=== PATIENT | male | born 1980 | race Caucasian/White ===

== ENCOUNTER → 2019-08-15 08:52 | Outpatient (BNVA) | payer OTHER, SELFPAY | PROVIDERS: Family Provider Family Medicine; Visit Provider Nurse Practitioner Psychiatric/Mental Health | DX: F43.12 Post-traumatic stress disorder, chronic (principal); F33.1 Major depressive disorder, recurrent, moderate; F41.1 Generalized anxiety disorder; Z87.820 Personal history of traumatic brain injury; G31.84 Mild cognitive impairment of uncertain or unknown etiology | CPT/HCPCS: 99214 ==

== ENCOUNTER → 2019-09-23 07:42 | Outpatient (BNVA) | payer OTHER, SELFPAY | PROVIDERS: Family Provider Family Medicine; Visit Provider Nurse Practitioner Psychiatric/Mental Health | DX: F43.12 Post-traumatic stress disorder, chronic (principal); F33.1 Major depressive disorder, recurrent, moderate; F41.1 Generalized anxiety disorder; Z87.820 Personal history of traumatic brain injury; G31.84 Mild cognitive impairment of uncertain or unknown etiology | CPT/HCPCS: 99214 ==

== ENCOUNTER → 2020-02-29 09:56 | Outpatient (BNVA) | payer OTHER, SELFPAY | PROVIDERS: Family Provider Family Medicine; PCP Urology; Visit Provider Nurse Practitioner Family | DX: Z20.828 Contact with and (suspected) exposure to other viral communicable diseases (principal) | CPT/HCPCS: 87635 ==

== ENCOUNTER → 2020-03-08 15:38 | Outpatient (BNVA) | payer OTHER, SELFPAY | PROVIDERS: Family Provider Family Medicine; PCP Family Medicine; Visit Provider Urology | DX: E29.1 Testicular hypofunction (principal) | CPT/HCPCS: 81001 ==

== ENCOUNTER 2020-04-07 14:12 | Emergency (ER) | payer OTHER, SELFPAY ==
--- NOTE | 2020-04-07 14:12 | XRR_ITS ---
PROCEDURE INFORMATION: Exam: XR Right Knee Exam date and time: 04/07/2020 2:13 PM Age: 40 years old Clinical indication: Pain; Knee; Right; Patient HX: Pivot/twist injury TECHNIQUE: Imaging protocol: XR Right knee. Views: 3 views. COMPARISON: No relevant prior studies available. FINDINGS: Bones/joints: No fracture evident. No significant joint space narrowing. Soft tissues: Normal. XR/XR knee RT 3V* [id number] IMPRESSION: No acute findings.
[2020-04-07 14:16] VITALS: BP 122/78; PULSE 100; RESP 18; TEMP 36.4; O2SAT 93; BMI 33.7
--- NOTE | 2020-04-07 14:27 | W.ED.EXTPRO ---
HPI - Extremity Problem General: Chief complaint: Extremity Injury, Lower Stated complaint: R KNEE PAIN Time Seen by Provider: 04/07/20 14:23 Source: patient Mode of arrival: ambulatory Limitations: no limitations History of Present Illness: HPI Narrative: 40-year-old male states he was wrapping a maximal game as he turned around he felt a pop in his right knee and started having right knee pain. He states that over the medial portion of his knee at the distal quadricep. Patient states that he now is unable to bear weight due to the pain. States pain is 7 out of 10. He does have swelling. Denies any other injuries. MD Complaint: extremity pain Associated symptoms: Deny chest pain, fever(s) or rash Review of Systems Const: Denies: fever(s), chills, body aches or change in appetite Eyes: Denies: blurry vision or eye discomfort ENMT: Denies: throat pain or dental pain Card: Denies: chest pain Resp: Denies: dyspnea GI: Denies: abdominal pain, nausea, vomiting or diarrhea : Denies: dysuria Musc: Reports: extremity pain Skin/Breast: Denies: rash Neuro: Denies: headache(s) Psych: Denies: depression Zeke/Lymph: Denies: easy bruising All/Imm: Denies: urticaria PFSH ED PFSH: Medical History Chronic post-traumatic stress disorder Diabetes mellitus Generalized anxiety disorder Hiatal hernia HTN (hypertension) Hypogonadism in male Major depressive disorder, recurrent, moderate Mild cognitive impairment, so stated Obstructive sleep apnea Personal history of traumatic brain injury Surgical History H/O arthroscopic knee surgery H/O esophagogastroduodenoscopy History of radiofrequency ablation (RFA) procedure for cardiac arrhythmia Hx of vasectomy Status post colonoscopy Family History Other CAD (coronary artery disease) Cancer Diabetes Stroke Denies family history of Anesthesia complication Bleeding disorder Social History Smoking and tobacco status: never smoked Alcohol intake: current Alcohol intake frequency: holidays/special occasions only History of recent travel: No Physical Exam Const: COMMON NORMALS: no acute distress, patient oriented x3 and healthy appearing HENMT: COMMON NORMALS: normocephalic and atraumatic HEAD & SCALP: normocephalic and atraumatic Eye: COMMON NORMALS: Equal, round and reactive pupils present and EOMs intact bilaterally PUPIL: Yes Equal, round and reactive pupils present Neck/C-Spine: COMMON NORMALS: full ROM and supple Chest: COMMONS NORMALS: normal inspection of the chest and normal palpation of entire chest wall Resp: COMMON NORMALS: normal respiratory effort, No retractions, No use of accessory muscles and clear to auscultation bilaterally AUSCULTATION: clear to auscultation bilaterally Cardio: COMMON NORMALS: regular rate, regular rhythm and No murmurs present (Cardio) RATE: regular rate RHYTHM: regular rhythm GI: COMMON NORMALS: Normal to inspection, nondistended, normoactive bowel sounds present, Soft to palpation, non-tender and no masses PALPATION: Yes Soft to palpation Extremity: NARRATIVE EXTREMITY EXAM: Tenderness over right knee mainly over the medial portion. Slight swelling. He does have range of motion. Neuro: COMMON NORMALS: patient oriented x3, moves all extremities and no focal motor deficits Psych: COMMON NORMALS: mental status grossly normal, Normal thought process present and cooperative THOUGHT PROCESS: Normal thought process present Skin: COMMON NORMALS: no rashes or lesions noted and no wounds GENERAL SKIN EXAM: no rashes or lesions noted Course Vital Signs: Vital signs: Vital Signs Temperature 97.6 F 04/07/20 14:16 Pulse Rate 100 04/07/20 14:16 Respiratory Rate 18 04/07/20 14:16 Blood Pressure 122/78 04/07/20 14:16 Pulse Oximetry 93 04/07/20 14:16 MDM - Extremity (Nontraumatic) MDM Narrative: Medical decision making narrative: Patient presents with a knee sprain. X-ray showed no acute fractures. Patient placed in a knee immobilizer and given crutches and is to follow-up with orthopedics and be nonweightbearing. Imaging Data^: X-ray right knee: Attestation: I personally reviewed and interpreted this imaging study as follows: My impression: No acute abnormality Discharge Plan Discharge Patient Disposition: Home Clinical Impression: Right knee sprain Qualifiers: Encounter type: initial encounter Involved ligament of knee: unspecified ligament Qualified Code(s): S83.91XA - Sprain of unspecified site of right knee, initial encounter Condition: Stable Prescriptions: New Naprosyn 500 mg tablet 500 mg PO BID PRN (Reason: pain) Qty: 20 RF: 0 No Action aspirin 325 mg tablet 325 mg PO DAILY RF: 0 lisinopril 40 mg tablet 40 mg PO DAILY RF: 0 metoprolol tartrate 100 mg tablet 100 mg PO BID RF: 0 multivitamin Tablet 1 tab PO DAILY RF: 0 metformin 500 mg tablet 1,000 mg PO BID RF: 0 atorvastatin 10 mg tablet 10 mg PO DAILY RF: 0 testosterone cypionate [Depo-Testosterone] 200 mg/mL oil 200 mg IM .Every other week Qty: 10 RF: 5 Discharge Orders: Discharge Order (Routine); Ordered 04/07/20 Ordered By: Caryn Thomason Referrals: Loco Diaz DO [Primary Care Provider] - Chetan De Dios MD [Physician] - 1-3 days Discharge Diet: Advance as tolerated Discharge Activity: Resume usual activity Patient Instructions: Knee Sprain (ED), Knee Immobilizer (ED) Coding Level of Care Code ED Linux 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
[2020-04-07] MEDS: HYDROcodone-acetaminophen 5-325 mg Tablet 1 TAB PO (14:34)
[2020-04-07 15:03] VITALS: BP 121/79; PULSE 91; RESP 20; O2SAT 95
--- NOTE | 2020-04-09 11:00 | DCPLANNER ---
fire safety manager had message to schedule a follow up appointment for patient with ortho. Truong solares called the ortho clinic, spoke with Meme, gave clinic patients information. fire safety manager was told that patients information would be printed and reviewed. Clinic will call patient with appointment information.
--- NOTE | 2020-04-10 08:16 | DCPLANNER ---
Patient has a follow up appointment scheduled for Thursday, April 16, 2020 at 9:[address] De Dios. Clinic will call patient with appointment information.
--- NOTE | 2020-04-25 12:04 | DCPLANNER ---
Patient had a follow up appointment scheduled for 04.16.20 with ortho - patient did not attend appointment.
== END 2020-04-07 16:03 | disposition home or self-care (01) ==
LOC: ER 14:42
PROVIDERS: Emergency Provider Emergency Medicine; PCP Family Medicine
DX: S83.91XA Sprain of unspecified site of right knee, initial encounter (principal); Z79.82 Long term (current) use of aspirin; X50.1XXA Overexertion from prolonged static or awkward postures, initial encounter; E11.9 Type 2 diabetes mellitus without complications; I10 Essential (primary) hypertension
CPT/HCPCS: 12345; 29530; 73562; 99281; 99283; E0114; L1830

== ENCOUNTER → 2020-06-12 15:47 | Outpatient (BNVA) | payer OTHER, SELFPAY | PROVIDERS: PCP Family Medicine; Visit Provider Nurse Practitioner Family | DX: Z20.828 Contact with and (suspected) exposure to other viral communicable diseases (principal) | CPT/HCPCS: 87635 ==

== ENCOUNTER → 2020-07-20 10:09 | Outpatient (BNVA) | payer OTHER, SELFPAY | PROVIDERS: PCP Family Medicine; Visit Provider Urology | DX: R79.89 Other specified abnormal findings of blood chemistry (principal); E29.1 Testicular hypofunction | CPT/HCPCS: 81003; 84403 ==

== ENCOUNTER 2020-08-23 09:07 | Inpatient (IN) | payer OTHER, SELFPAY ==
[2020-08-23] VITALS (42 sets, daily range): BP systolic 94–142; BP diastolic 52–78; PULSE 68–152; RESP 9–27; TEMP 36.5–36.9; O2SAT 18–98; BMI 32.5
--- NOTE | 2020-08-23 09:16 | ECG_ITS ---
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 Measurements Intervals [place] Rate: 152 P: AL: QRS: 61 QRSD: 100 T: 58 QT: 278 QTc: 442 Interpretive Statements ATRIAL FIBRILLATION WITH RAPID VENTRICULAR RESPONSE CRITICAL TEST RESULT Compared to ECG 04/24/2018 01:09:53 Sinus rhythm no longer present Intraventricular conduction delay no longer present T-wave abnormality no longer present Electronically Signed On 08-23-2020 17:26:41 CDT by Sita Isaac M.D. [email or web address]/store/NU/[id number] f
--- NOTE | 2020-08-23 09:16 | XR_ITS ---
WS: [id number] Portable AP upright chest, 08/23/2020 Clinical Data: chest pain/dyspnea Comparison: Portable chest, 04/23/2018. Findings: No nodules, masses or effusions are seen. The heart is normal. The pulmonary vascularity is not increased. No pneumonia or pneumothorax is seen. XR/XR chest 1V portable [id number] Impression: Negative chest.
[2020-08-23 09:24] LABS: Glucose Point of Care 503 mg/dL (70-110)
[2020-08-23 09:34] LABS: Basophils # 0.1 10^3/uL (0.0-0.1); Basophils % 0.8 %; Eosinophils # 0.2 10^3/uL (0.0-0.8); Eosinophils % 2.8 %; Hematocrit 50.1 % (42.0-52.0); Hemoglobin 17.8 g/dL (11.7-16.6); Lymphocytes # 2.6 10^3/uL (0.8-4.8); Lymphocytes % 35.9 %; Mean Corpuscular HGB Conc 35.5 g/dL (30.0-36.0); Mean Corpuscular Volume 89.9 fL (80-94); Mean Platelet Volume 12.4 fL (7.4-10.4); Monocytes # 0.7 10^3/uL (0.2-0.9); Monocytes % 9.3 %; Neutrophils # 3.66 10^3/uL (1.8-7.7); Neutrophils % 50.8 %; Nucleated Red Blood Cells % 0 %; Platelet Count 160 10^3/cmm (130-400); Red Blood Count 5.57 10^6/uL (4.1-5.3); Red Cell Distribution Width 11.4 % (12.1-15.1); White Blood Count 7.2 10^3/uL (4.0-10.0)
--- NOTE | 2020-08-23 09:36 | ED_ITS ---
HPI - Arrhythmia/Palpitations General: Chief Complaint: Arrhythmia/Palpitations Stated Complaint: SOB, CP, AFIB Time Seen by Provider: 08/23/20 09:15 History of Present Illness: HPI narrative: 40-year-old male presents emergency room with complaint of rapid heart rate. He has a history of atrial fibrillation and previously had a ablation procedure done several years ago. This morning he began suddenly having chest discomfort and rapid heart rate. On arrival here he is in A. fib with RVR. He is currently taking metoprolol for for hypertension he also has a history of diabetes mellitus. He denies excessive caffeine intake or other stimulants. MD complaint: rapid heart beat, heart racing , palpitations and irregular heart beat Onset (ago): minute(s) Duration: constant Severity: moderate Context: occurred during rest Arrhythmia history: atrial fibrillation Associated symptoms: Reports anxiety and diaphoresis; Deny cough, muscle cramps, nausea, paresthesias, pre-syncope, sense of impending doom, short of breath, syncope or vomiting Review of Systems Const: Reports: diaphoresis ENMT: Denies: throat pain, ear or mastoid pain, nasal discharge or nasal congestion Card: Denies: syncope or pre-syncope Resp: Denies: dyspnea, productive cough or non-productive cough GI: Denies: nausea or vomiting : Denies: flank pain, dysuria, urinary frequency or urinary urgency Musc: Denies: muscle cramps Skin/Breast: Denies: rash or pruritus Psych: Reports: anxiety PFS ED PFSH: Medical History Chronic post-traumatic stress disorder Diabetes mellitus Generalized anxiety disorder Hiatal hernia HTN (hypertension) Hypogonadism in male Major depressive disorder, recurrent, moderate Mild cognitive impairment, so stated Obstructive sleep apnea Personal history of traumatic brain injury Surgical History H/O arthroscopic knee surgery H/O esophagogastroduodenoscopy History of radiofrequency ablation (RFA) procedure for cardiac arrhythmia Hx of vasectomy Status post colonoscopy Family History Other CAD (coronary artery disease) Cancer Diabetes Stroke Denies family history of Anesthesia complication Bleeding disorder Social History (Reviewed 04/01/21 @ 09:38 by REENA Hernandez Smoking and tobacco status: never smoked Alcohol intake: current Alcohol intake frequency: holidays/special occasions only History of recent travel: No Physical Exam Const: COMMON NORMALS: no acute distress GENERAL APPEARANCE: cooperative and comfortable ORIENTATION/CONSCIOUSNESS: Yes awake, Yes oriented to person, Yes oriented to place and Yes oriented to time HENMT: COMMON NORMALS: normocephalic, atraumatic and hearing grossly normal bilaterally HEAD & SCALP: normocephalic and atraumatic Eye: COMMON NORMALS: Equal, round and reactive pupils present, EOMs intact bilaterally, conjunctivae normal and no scleral icterus CONJUNCTIVA: Yes conjunctivae normal PUPIL: Yes Equal, round and reactive pupils present Neck/C-Spine: COMMON NORMALS: no JVD Resp: COMMON NORMALS: normal respiratory effort, No retractions, No use of accessory muscles and clear to auscultation bilaterally AUSCULTATION: clear to auscultation bilaterally Cardio: COMMON NORMALS: no JVD and No murmurs present (Cardio) RATE: tach ycardic RHYTHM: abnormal rhythm irregularly irregular GI: COMMON NORMALS: Soft to palpation and No hepatosplenomegaly present AUSCULTATION: Yes normoactive bowel sounds PALPATION: Yes Soft to palpation, No Tenderness to palpation present (GI), No Guarding due to palpation present (GI) and Yes No hepatosplenomegaly present Extremity: COMMON NORMALS: normal to inspection, capillary refill normal, no clubbing, cyanosis or edema, no calf tenderness and no pedal edema Neuro: SENSORIUM/ORIENTATION: Yes oriented to person, Yes oriented to place and Yes oriented to time Skin: COMMON NORMALS: no rashes or lesions noted GENERAL SKIN EXAM: no rashes or lesions noted Course Vital Signs: Vital signs: Vital Signs Temperature 97.7 F 08/23/20 09:17 Pulse Rate 123 H 08/23/20 12:43 Respiratory Rate 12 08/23/20 12:43 Blood Pressure 94/71 08/23/20 12:43 Pulse Oximetry 94 08/23/20 12:43 MDM - Arrhythmia/Palpitations MDM Narrative: Medical decision making narrative: A. fib with RVR. We tried supplementing his beta-bibiana with IV and p.o. but he had no improvement ultimately we started him on Cardizem. He is feeling quite a bit better since then his rate is still not fully controlled will admit for rate control and adjustment of medications. Orders are written Lab Data: Labs: Lab Results 08/23/20 08/23/20 08/23/20 Range/Units 09:21 09:25 09:25 WBC 7.2 (4.0-10.0) 10^3/ uL RBC 5.57 H (4.1-5.3) 10^6/u L Hgb 17.8 H (11.7-16.6) g/dL Hct 50.1 (42.0-52.0) % MCV 89.9 (80-94) fL MCH 32.0 (28.0-34.0) pg MCHC 35.5 (30.0-36.0) g/dL RDW 11.4 L (12.1-15.1) % Plt Count 160 (130-400) 10^3/c mm MPV 12.4 H (7.4-10.4) fL Neut % (Auto) 50.8 % Lymph % (Auto) 35.9 % [place] % (Auto) 9.3 % Eos % (Auto) 2.8 % Baso % (Auto) 0.8 % Neut # (Auto) 3.66 (1.8-7.7) 10^3/u L Lymph # (Auto) 2.6 (0.8-4.8) 10^3/u L [place] # (Auto) 0.7 (0.2-0.9) 10^3/u L Eos # (Auto) 0.2 (0.0-0.8) 10^3/u L Baso # (Auto) 0.1 (0.0-0.1) 10^3/u L Nucleated RBC % (a uto) 0 % Nucleated RBCs # 0.0 /100WBC Specimen Type Sample Site ABG pH (7.35-7.45) ABG pCO2 (35-45) mmHg ABG pO2 (80.0-100.0) mmH g ABG HCO3 (22-26) mmol/L ABG O2 Saturation ABG Base Excess (-2.0-2.0) mmol/ L Zane Test A-a O2 Gradient (5-10) mmHg Hematocrit (42-52) % Hgb O2 Saturation (95-100) % Carboxyhemoglobin (0.4-20.1) %THgb Methemoglobin (0.4-1.5) % Total Hemoglobin (14-18) g/dL Ionized Calcium (1.1-1.4) mmol/L O2 Delivery Device FiO2 % Photo Checker ID Sodium 131 L (136-145) mmol/L Potassium 3.9 (3.5-5.1) mmol/L Chloride 96 L (98-107) mmol/L Carbon Dioxide 22 (22-29) mmol/L Anion Gap 16.9 (5-19) BUN 16 (6-20) mg/dL Creatinine 0.5 L (0.7-1.2) mg/dL GFR Calculation 182.3 H (90-130) mL/min Glucose 500 H (65-115) mg/dL POC Glucose 503 H* (70-110) mg/dL Calculated Osmolal ity 295 (285-295) mOsm/k g Calcium 8.9 (8.5-10.5) mg/dL Total Bilirubin 0.6 (0.15-1.2) mg/dL AST 41 H (0-40) U/L ALT 76 H (0-41) U/L Alkaline Phosphata se 95 (40-130) IU/L Troponin T Baselin e (0-15) ng/L Troponin T 120 Min [place] (0-15) ng/L Delta Troponin T (0-10) ABS# Total Protein 7.4 (6.6-8.7) g/dL Albumin 4.1 (3.5-5.2) g/dL Globulin 3.3 (1.3-4.6) g/dL Serum Ketones (Negative) 08/23/20 08/23/20 08/23/20 Range/Units 09:25 09:25 09:48 WBC (4.0-10.0) 10^3/ uL RBC (4.1-5.3) 10^6/u L Hgb (11.7-16.6) g/dL Hct (42.0-52.0) % MCV (80-94) fL MCH (28.0-34.0) pg MCHC (30.0-36.0) g/dL RDW (12.1-15.1) % Plt Count (130-400) 10^3/c mm MPV (7.4-10.4) fL Neut % (Auto) % Lymph % (Auto) % [place] % (Auto) % Eos % (Auto) % Baso % (Auto) % Neut # (Auto) (1.8-7.7) 10^3/u L Lymph # (Auto) (0.8-4.8) 10^3/u L [place] # (Auto) (0.2-0.9) 10^3/u L Eos # (Auto) (0.0-0.8) 10^3/u L Baso # (Auto) (0.0-0.1) 10^3/u L Nucleated RBC % (a uto) % Nucleated RBCs # /100WBC Specimen Type Arterial Sample Site Radial, right ABG pH 7.40 (7.35-7.45) ABG pCO2 39.9 (35-45) mmHg ABG pO2 79.2 L (80.0-100.0) mmH g ABG HCO3 24.8 (22-26) mmol/L ABG O2 Saturation 95.0 ABG Base Excess 0.0 (-2.0-2.0) mmol/ L Zane Test Pos A-a O2 Gradient 3.1 L (5-10) mmHg Hematocrit 55.2 H (42-52) % Hgb O2 Saturation 94.2 L (95-100) % Carboxyhemoglobin 0.2 L (0.4-20.1) %THgb Methemoglobin 0.7 (0.4-1.5) % Total Hemoglobin 18.0 (14-18) g/dL Ionized Calcium 1.2 (1.1-1.4) mmol/L O2 Delivery Device Room air FiO2 21.0 % Photo Checker ID [place] Sodium 135.0 (136-145) mmol/L Potassium 3.6 (3.5-5.1) mmol/L Chloride (98-107) mmol/L Carbon Dioxide (22-29) mmol/L Anion Gap (5-19) BUN (6-20) mg/dL Creatinine (0.7-1.2) mg/dL GFR Calculation (90-130) mL/min Glucose 435.0 H (65-115) mg/dL POC Glucose (70-110) mg/dL Calculated Osmolal ity (285-295) mOsm/k g Calcium (8.5-10.5) mg/dL Total Bilirubin (0.15-1.2) mg/dL AST (0-40) U/L ALT (0-41) U/L Alkaline Phosphata se (40-130) IU/L Troponin T Baselin e 6 (0-15) ng/L Troponin T 120 Min [place] (0-15) ng/L Delta Troponin T (0-10) ABS# Total Protein (6.6-8.7) g/dL Albumin (3.5-5.2) g/dL Globulin (1.3-4.6) g/dL Serum Ketones Negative (Negative) 08/23/20 Range/Units 11:15 WBC (4.0-10.0) 10^3/ uL RBC (4.1-5.3) 10^6/u L Hgb (11.7-16.6) g/dL Hct (42.0-52.0) % MCV (80-94) fL MCH (28.0-34.0) pg MCHC (30.0-36.0) g/dL RDW (12.1-15.1) % Plt Count (130-400) 10^3/c mm MPV (7.4-10.4) fL Neut % (Auto) % Lymph % (Auto) % [place] % (Auto) % Eos % (Auto) % Baso % (Auto) % Neut # (Auto) (1.8-7.7) 10^3/u L Lymph # (Auto) (0.8-4.8) 10^3/u L [place] # (Auto) (0.2-0.9) 10^3/u L Eos # (Auto) (0.0-0.8) 10^3/u L Baso # (Auto) (0.0-0.1) 10^3/u L Nucleated RBC % (a uto) % Nucleated RBCs # /100WBC Specimen Type Sample Site ABG pH (7.35-7.45) ABG pCO2 (35-45) mmHg ABG pO2 (80.0-100.0) mmH g ABG HCO3 (22-26) mmol/L ABG O2 Saturation ABG Base Excess (-2.0-2.0) mmol/ L Zane Test A-a O2 Gradient (5-10) mmHg Hematocrit (42-52) % Hgb O2 Saturation (95-100) % Carboxyhemoglobin (0.4-20.1) %THgb Methemoglobin (0.4-1.5) % Total Hemoglobin (14-18) g/dL Ionized Calcium (1.1-1.4) mmol/L O2 Delivery Device FiO2 % Photo Checker ID Sodium (136-145) mmol/L Potassium (3.5-5.1) mmol/L Chloride (98-107) mmol/L Carbon Dioxide (22-29) mmol/L Anion Gap (5-19) BUN (6-20) mg/dL Creatinine (0.7-1.2) mg/dL GFR Calculation (90-130) mL/min Glucose (65-115) mg/dL POC Glucose (70-110) mg/dL Calculated Osmolal ity (285-295) mOsm/k g Calcium (8.5-10.5) mg/dL Total Bilirubin (0.15-1.2) mg/dL AST (0-40) U/L ALT (0-41) U/L Alkaline Phosphata se (40-130) IU/L Troponin T Baselin e (0-15) ng/L Troponin T 120 Min [place] 6.37 (0-15) ng/L Delta Troponin T 0.37 (0-10) ABS# Total Protein (6.6-8.7) g/dL Albumin (3.5-5.2) g/dL Globulin (1.3-4.6) g/dL Serum Ketones (Negative) Discharge Plan Discharge Patient Disposition: Admitted As Inpatient Admit Provider: Joaquín Schafer Clinical Impression: Atrial fibrillation with rapid ventricular response Condition: Stable Coding Level of Care Code ED Clinical Systems Analyst for Chg Fwd Exam Comprehensive
[2020-08-23] MEDS: metoprolol tartrate 50 mg Tablet PO (09:38)
[2020-08-23] MEDS: metoprolol tartrate 1 mg/1 mL SDV 5 mL 5 MG IV (09:38)
[2020-08-23] MEDS: insulin regular-human 100 units/1 mL 10 UNIT IVP (09:40)
[2020-08-23 09:51] LABS: Alanine Aminotransferase 76 U/L (0-41); Albumin Level 4.1 g/dL (3.5-5.2); Alkaline Phosphatase 95 IU/L (40-130); Anion Gap 16.9 (5-19); Aspartate Amino Transferase 41 U/L (0-40); Blood Urea Nitrogen 16 mg/dL (6-20); Calcium 8.9 mg/dL (8.5-10.5); Carbon Dioxide 22 mmol/L (22-29); Chloride 96 mmol/L (98-107); Globulin 3.3 g/dL (1.3-4.6); Glomerular Filtration Rate 182.3 mL/min (90-130); Glucose 500 mg/dL (65-115); Osmolality Calculated 295 mOsm/kg (285-295); Potassium 3.9 mmol/L (3.5-5.1); Sodium 131 mmol/L (136-145); Total Bilirubin 0.6 mg/dL (0.15-1.2); Total Protein 7.4 g/dL (6.6-8.7)
[2020-08-23 09:52] LABS: Troponin(5th) Baseline 6 ng/L (0-15)
[2020-08-23 10:01] LABS: ABG PCO2 39.9 mmHg (35-45); Alveolar-Arterial Oxygen Gradi 3.1 mmHg (5-10); Arterial Blood Gas Hematocrit 55.2 % (42-52); Blood Gas Allen Test Pos; Blood Gas Operator Identificat MONRO; Blood Gas Sample Site Radial, right; Blood Gas Sample Type Arterial; Carboxyhemoglobin 0.2 %THgb (0.4-20.1); HCO3 ABG 24.8 mmol/L (22-26); HGB O2 Sat 94.2 % (95-100); Ionized Calcium Level - ABG 1.2 mmol/L (1.1-1.4); Methemoglobin 0.7 % (0.4-1.5); Oxygen Device ROOM AIR; PO2 ABG 79.2 mmHg (80.0-100.0); Potassium Level - ABG 3.6 mmol/L (3.5-5.0)
[2020-08-23 10:26] LABS: Ketone (Acetest) Serum Negative (Negative)
--- NOTE | 2020-08-23 11:16 | ECG_ITS ---
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 Measurements Intervals [place] Rate: 109 P: [place]: QRS: 68 QRSD: 104 T: 54 QT: 337 QTc: 454 Interpretive Statements ATRIAL FIBRILLATION WITH RAPID VENTRICULAR RESPONSE ABNORMAL RHYTHM ECG Compared to ECG 08/23/2020 09:13:19 No significant changes Electronically Signed On 08-23-2020 17:25:22 CDT by Sita Isaac M.D. [id number] f
[2020-08-23 12:13] LABS: Troponin 5 2HR 6.37 ng/L (0-15); Troponin 5 2HR Delta 0.37 ABS# (0-10)
[2020-08-23] MEDS: HYDROcodone-acetaminophen 5-325 mg Tablet 1 TAB PO (13:59)
--- NOTE | 2020-08-23 14:31 | PM.HP ---
Providers/Chief Complaint Admitting Physician: Joaquín Schafer MD Primary Care Provider: Loco Diaz DO Chief Complaint: SOB, CP, AFIB History of Present Illness Michael Funk is a 40 year old male with PMH of HTN, DM, TBI,CHETNA, PTSD, MDD, a/fib s/p ablation in 2012 came in with c/o acute onset of chest pain, palpitation,dizziness, nausea, diaphoresis, started this morning while going to bank, his symptoms were same as he what he used to feel initially when he had a.fib prior to ablation. He was evaluated for the above mention complain in the ER. EKG: A fib with RVR Xray chest : No nodules, masses or effusions are seen. The heart is normal. The pulmonary vascularity is not increased. No pneumonia or pneumothorax is seen. Pertinent Labs : Troponin: T : Normal , ABG : Normal , CMP : Normal Hb: 17.8 RBS: 435, AG : 16 HCO3: 22 . ECA Medications : Cardizem 20 mg I.V * 1 Dose, Metoprolol .T : 50 MG PO Once, M.T : 5 Mg I.V * 1 Dose. Started on Cardizem Drip. Regular Insulin 10 u I.V *1 Dose Review of Systems Const: Denies: fever(s), chills, body aches or change in appetite Card: Denies: edema, swelling of feet/ankles, dyspnea on exertion, orthopnea or leg pain with exertion Resp: Denies: dyspnea, productive cough, wheezing or pain on inspiration GI: Denies: abdominal pain, diarrhea or constipation : Denies: flank pain or difficulty urinating Musc: Denies: back pain, extremity pain or extremity swelling Neuro: Denies: headache(s), difficulty walking or confusion Medications/Allergies Home Medications Medication Instructions Recorded Confirmed Last Taken Type aspirin 325 mg tablet 325 mg PO DAILY@08/15/19 08/23/20 08/23/20 History lisinopril 40 mg tablet 40 mg PO DAILY@08/15/19 08/23/20 08/23/20 History metoprolol tartrate 100 mg tablet 100 mg PO BID@08/15/19 08/23/20 08/23/20 History multivitamin 1 tab PO DAILY@08/15/19 08/23/20 08/23/20 History testosterone cypionate 200 mg/mL 200 mg IM .Every other week #10 ml 07/20/20 08/23/20 Unknown Rx intramuscular oil metformin 500 mg PO BID@09,17 08/23/20 08/23/20 08/23/20 History Allergies Allergy/AdvReac Type Severity Reaction Status Date / Time No Known Allergies Allergy Verified 07/20/20 10:05 PFSH Acute PFSH: Medical History Chronic post-traumatic stress disorder Diabetes mellitus Generalized anxiety disorder Hiatal hernia HTN (hypertension) Hypogonadism in male Major depressive disorder, recurrent, moderate Mild cognitive impairment, so stated Obstructive sleep apnea Personal history of traumatic brain injury Surgical History H/O arthroscopic knee surgery H/O esophagogastroduodenoscopy History of radiofrequency ablation (RFA) procedure for cardiac arrhythmia Hx of vasectomy Status post colonoscopy Family History Other CAD (coronary artery disease) Cancer Diabetes Stroke Denies family history of Anesthesia complication Bleeding disorder Social History Smoking and tobacco status: never smoked Alcohol intake: current Alcohol intake frequency: holidays/special occasions only History of recent travel: No Vitals/I&O/Wt Last Vital Signs Temp 97.7 F 08/23/20 09:17 Pulse 116 H 08/23/20 13:59 Resp 13 08/23/20 13:59 BP 105/78 08/23/20 13:59 Pulse Ox 95 08/23/20 13:59 08/22/20 08/23/20 08/23/20 22:59 06:59 14:59 Intake Total 13.292 / 13.292 Balance 13.292 / 13.292 Weight last 48 hrs Weight 117.934 kg Physical Exam Const: COMMON NORMALS: patient oriented x3 HENMT: COMMON NORMALS: normocephalic and atraumatic HEAD & SCALP: normocephalic and atraumatic Chest: COMMONS NORMALS: normal inspection of the chest and normal palpation of entire chest wall CHEST: Yes Symmetrical chest wall rise Resp: COMMON NORMALS: normal respiratory effort, No retractions, No use of accessory muscles and clear to auscultation bilaterally EFFORT & INSPECTION: Yes symmetric chest movement AUSCULTATION: clear to auscultation bilaterally Cardio: PERIPHERAL PULSES: Peripheral pulses 2+ throughout OTHER: S1S2 of Variable Intensity,Irregularly Irregular Rhythm GI: COMMON NORMALS: Normal to inspection, nondistended, normoactive bowel sounds present, Soft to palpation, non-tender, No hepatosplenomegaly present and no masses AUSCULTATION: Yes normoactive bowel sounds PALPATION: Yes Soft to palpation and Yes No hepatosplenomegaly present RECTAL EXAM: Yes deferred Extremity: COMMON NORMALS: no clubbing, cyanosis or edema and no pedal edema Neuro: COMMON NORMALS: patient oriented x3 Data : 08/23/20 09:25 08/23/20 09:25 A&P Assessment and plan (1) Atrial fibrillation with rapid ventricular response: 2D Echo TSH Tele On Cardizem Drip Metoprolol .T 100 MG Q12 H Daily Lovenox 120 mg sc q12 h daily Status: Acute (2) HTN (hypertension): Lisinopril 40 mg PO Daily Status: Acute (3) Diabetes mellitus: LDSSI FSG HbA1C Status: Acute (4) Obstructive sleep apnea: Status: Acute Additional A&P Information Code Status : Full code DVT PPX: On Eliquis Disposition :Home Attestations Medical Necessity Statement*: Patient needs to be in hospital for the management of A.fib with RVR. Anticipated LOS Greater then 2 midnights. Coding Level of Care Code Acute Fire Tower Keeper for Chg Fwd Diagnoses Atrial fibrillation with rapid ventricular response I48.91 HTN (hypertension) I10 Diabetes mellitus E11.9 Obstructive sleep apnea G47.33
--- NOTE | 2020-08-23 15:16 | ECG_ITS ---
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 Measurements Intervals [place] Rate: 97 P: MS: QRS: 58 QRSD: 104 T: 41 QT: 339 QTc: 432 Interpretive Statements ATRIAL FIBRILLATION ABNORMAL RHYTHM ECG Compared to ECG 08/23/2020 11:42:16 No significant changes Electronically Signed On 08-23-2020 17:24:40 CDT by Sita Isaac M.D. [email or web address]
--- NOTE | 2020-08-23 16:00 | PC.NURSE ---
Pt arrived to room 103 from ED. Pt A&O x4. Resp even and non-labored no distress noted. Pt had no c/o pain or discomfort at the present time. Pt on a Cardizem drip at 15mg/hr. Pt sitting up in bed talking to and staff. Call light in reach. Will continue to monitor.
[2020-08-23] MEDS: enoxaparin 100 mg/mL Syringe 120 MG SUBCUT (16:09)
[2020-08-23] MEDS: metoprolol tartrate 50 mg Tablet 100 MG PO (16:09)
[2020-08-23 16:12] LABS: Glucose Point of Care 340 mg/dL (70-110)
[2020-08-23 17:48] LABS: Troponin 5 6HR Delta 0 ng/L (0-12)
--- NOTE | 2020-08-23 19:52 | PC.NURSE ---
Bedside report received from Roz Mcfadden RN. Patient is sitting in bed using is Ipad, A & O x4, denies pain or any needs at this time.
[2020-08-23 20:37] LABS: Glucose Point of Care 317 mg/dL (70-110)
[2020-08-24] VITALS (38 sets, daily range): BP systolic 105–120; BP diastolic 62–74; PULSE 67–116; RESP 0–23; TEMP 36.6–36.8; O2SAT 94–96
--- NOTE | 2020-08-24 00:09 | PC.NURSE ---
Patient up using the restroom. Denies pain or any needs at this time.
[2020-08-24] MEDS: enoxaparin 100 mg/mL Syringe 120 MG SUBCUT (01:46)
--- NOTE | 2020-08-24 05:00 | USCV_ITS ---
Michael Funk Age: 40 Gender: M : 1980 Exam Date: 08/24/2020 16:25 Ordering Phys: Joaquín Schafer MD Technologist: Julita Blount [place] [facility] [place]: CHEST PAIN BP: 100 / 55 HR: 76 Rhythm: Sinus Technical Quality: Adequate MEASUREMENTS (Male / Female) Normal Values 2D ECHO LV Diastolic Diameter PLAX 4.4 cm 4.2 - 5.9 / 3.9 - 5.3 cm LV Systolic Diameter PLAX 3.5 cm LV Chamber Size 4.3 cm IVS Diastolic Thickness 1.1 cm 0.6 - 1.0 / 0.6 - 0.9 cm IVS Systolic Thickness 1.6 cm LVPW Diastolic Thickness 1.5 cm 0.6 - 1.0 / 0.6 - 0.9 cm LVPW Systolic Thickness 1.5 cm RV Chamber Size 3.6 cm LVOT Diameter 2.4 cm LV Ejection Fraction 2D Teich 41.0 % LV Ejection Fraction MOD 2C 27.9 % LV Ejection Fraction 2C AL 28.5 % LA Diameter 3.3 cm LA Width 3.0 cm LA Height 5.3 cm RA Width 3.4 cm RA Height 4.8 cm Aorta at Sinotubular Diameter 3.3 cm M-MODE LV Diastolic Diameter MM 4.3 cm 4.2 - 5.9 / 3.9 - 5.3 cm LV Systolic Diameter MM 3.2 cm LV Ejection Fraction MM Teich 50.8 % IVS Diastolic Thickness MM 1.3 cm 0.6 - 1.0 / 0.6 - 0.9 cm IVS Systolic Thickness MM 1.6 cm LVPW Diastolic Thickness MM 1.2 cm 0.6 - 1.0 / 0.6 - 0.9 cm LVPW Systolic Thickness MM 1.5 cm RV Diastolic Diameter MM 1.1 cm Aortic Annulus Diameter 3.7 cm LA Ao Ratio MM 1.0 MV E Point Septal Separation 0.4 cm DOPPLER AV Peak Velocity 88.0 cm/s LVOT Peak Velocity 62.0 cm/s AV Area Cont Eq vti 3.1 cm squared AV Area Cont Eq pk 3.1 cm squared MV Area PHT 4.8 cm squared Mitral E to A Ratio 1.3 MV E' Velocity 33.0 cm/s Mitral E to MV E' Ratio 6.6 Mitral E to LV E' Lateral Ratio 5.9 Mitral E to LV E' Septal Ratio 7.6 TR Peak Velocity 218.9 cm/s TR Peak Gradient 19.2 mmHg TR Mean Velocity 170.4 cm/s TR Mean Gradient 12.5 mmHg TR Velocity Time Integral 50.4 cm TV Peak E Velocity 53.0 cm/s Right Atrial Pressure 3.0 mmHg Pulmonary Artery Systolic Pressu 22.2 mmHg PV Peak Velocity 57.0 cm/s RV Acceleration Time 0.1 s RV Ejection Time 0.3 s RV AcT/ET 0.4 FINDINGS Left Ventricle Mild diffuse hypokinesia of the left ventricle with ejection fraction of 45 to 50% Right Ventricle The right ventricle is normal in size and function. Right Atrium The right atrium is normal in size. Left Atrium The left atrium is normal in size. Mitral Valve No gross abnormalities noted Aortic Valve No gross abnormalities noted Tricuspid Valve Trace tricuspid valve regurgitation Pulmonic Valve No significant stenosis or regurgitation Pericardium Normal pericardium without effusion. Aorta Normal ascending aorta dimension. CONCLUSIONS Mild diffuse hypokinesia of the left ventricle with ejection fraction of 45 to 50%. Trace tricuspid valve regurgitation . Normal cardiac chamber sizes There are no intracardiac masses. Compared to the study from 07/06/2018, the drop in the LV ejection fraction appears to be new. Discussed with Dr. Schafer about this finding Dr Willie Harrison MD [facility] (Electronically Signed) Final Date: 25 August 2020 09:23 S
[2020-08-24 05:01] LABS: Basophils # 0.1 10^3/uL (0.0-0.1); Basophils % 0.8 %; Eosinophils # 0.3 10^3/uL (0.0-0.8); Eosinophils % 3.6 %; Hematocrit 50.4 % (42.0-52.0); Hemoglobin 17.8 g/dL (11.7-16.6); Lymphocytes # 3.5 10^3/uL (0.8-4.8); Lymphocytes % 46.8 %; Mean Corpuscular HGB Conc 35.3 g/dL (30.0-36.0); Mean Corpuscular Volume 90.6 fL (80-94); Mean Platelet Volume 12.2 fL (7.4-10.4); Monocytes # 0.5 10^3/uL (0.2-0.9); Monocytes % 7.1 %; Neutrophils # 3.07 10^3/uL (1.8-7.7); Nucleated Red Blood Cells % 0 %; Platelet Count 163 10^3/cmm (130-400); Red Blood Count 5.56 10^6/uL (4.1-5.3); Red Cell Distribution Width 11.4 % (12.1-15.1); White Blood Count 7.5 10^3/uL (4.0-10.0)
[2020-08-24 05:22] LABS: Chol HDL Ratio 7.34 mg/dL (1.0-5.00); Cholesterol 213 mg/dL (0-200); HDL Cholesterol 29 mg/dL (60-100); LDL Cholesterol Calculated 104 mg/dL (50-129); LDL HDL Ratio 3.59 RATIO (0.00-3.22); Triglycerides 398 mg/dL (0-150)
[2020-08-24 05:24] LABS: Anion Gap 11.9 (5-19); Blood Urea Nitrogen 19 mg/dL (6-20); Calcium 8.6 mg/dL (8.5-10.5); Carbon Dioxide 26 mmol/L (22-29); Chloride 101 mmol/L (98-107); Glomerular Filtration Rate 147.8 mL/min (90-130); Glucose 257 mg/dL (65-115); Osmolality Calculated 291 mOsm/kg (285-295); Potassium 3.9 mmol/L (3.5-5.1); Sodium 135 mmol/L (136-145)
[2020-08-24 05:28] LABS: Magnesium 1.9 mg/dL (1.7-2.3)
[2020-08-24 05:31] LABS: Estmated Average Glucose 243; Hemoglobin A1C 10.1 % (4.0-6.0)
[2020-08-24 06:02] LABS: Testosterone Total 272.4 ng/dL (249-836)
--- NOTE | 2020-08-24 06:45 | PC.NURSE ---
End of shift summary Patient's heart rate continued to be between 90's - up to 120. No changes to Cardizem drip. Continues to be at 15 mL per hour. Patient did not sleep well and requests something to help him sleep tonight if he is still in the hospital. Patient has no other complaints at this time.
[2020-08-24 07:19] LABS: Glucose Point of Care 276 mg/dL (70-110)
--- NOTE | 2020-08-24 07:27 | PC.NURSE ---
Pt lying in bed resting with eyes closed. Pt resp even and non-labored no distress noted. Pt had no s/s of pain or discomfort at the present time. Cardizem drip at 15ml/hr continuous. IV patent no redness or swelling noted. Call light in reach. No needs voiced. Will continue to monitor.
--- NOTE | 2020-08-24 08:00 | PC.NURSE ---
Pt converted to SR Denies any dizziness or lightheadedness. Dr. Schafer saw the conversion and verbal order to titrate the cardizm drip down then stop. Verbal order read back to give 50 mg Metoprolol now and hold off the lisinopril for today. BP-108/62, HR-81
[2020-08-24] MEDS: multivitamin therapeutic Tablet 1 TAB PO (08:55)
[2020-08-24] MEDS: metoprolol tartrate 50 mg Tablet PO ×2 (08:55→18:18)
--- NOTE | 2020-08-24 09:54 | PM.PN ---
Subjective Subjective: Interval history: was seen and examined this morning.He was not able to sleep nicely last night, but currently deny any chest, pain, sob,palpitation, nausea,headache. Converted to NSR today in the morning.Cradizem drip has been stopped. His other Vitals and labs have been reviewed. Medications: Reviewed: Yes Vitals/I&O/Wt Last Vital Signs Temp 98.2 F 08/24/20 07:47 Pulse 83 08/24/20 08:25 Resp 13 08/24/20 08:25 BP 108/62 08/24/20 08:25 Pulse Ox 96 08/24/20 07:47 08/23/20 08/24/20 08/24/20 22:59 06:59 14:59 Intake Total 561 / 574.292 98.25 / 672.542 451.25 / 451.25 Balance 561 / 574.292 98.25 / 672.542 451.25 / 451.25 Weight last 48 hrs Weight 117.934 kg Physical Exam Const: COMMON NORMALS: patient oriented x3 HENMT: COMMON NORMALS: normocephalic and atraumatic HEAD & SCALP: normocephalic and atraumatic Neck/C-Spine: COMMON NORMALS: no JVD Chest: COMMONS NORMALS: normal inspection of the chest and normal palpation of entire chest wall CHEST: Yes Symmetrical chest wall rise Resp: COMMON NORMALS: normal respiratory effort, No retractions, No use of accessory muscles and clear to auscultation bilaterally EFFORT & INSPECTION: Yes symmetric chest movement AUSCULTATION: clear to auscultation bilaterally Cardio: COMMON NORMALS: no JVD, regular rate, regular rhythm, S1 normal heart sound present, S2 normal heart sound present and Peripheral pulses 2+ throughout RATE: regular rate RHYTHM: regular rhythm HEART SOUNDS: S1 normal heart sound present and S2 normal heart sound present PERIPHERAL PULSES: Peripheral pulses 2+ throughout GI: COMMON NORMALS: Normal to inspection, nondistended, normoactive bowel sounds present, Soft to palpation, non-tender, No hepatosplenomegaly present and no masses AUSCULTATION: Yes normoactive bowel sounds PALPATION: Yes Soft to palpation and Yes No hepatosplenomegaly present RECTAL EXAM: Yes deferred Extremity: COMMON NORMALS: no clubbing, cyanosis or edema and no pedal edema Neuro: COMMON NORMALS: patient oriented x3 Data : 08/24/20 04:22 08/24/20 04:22 A&P Assessment and plan (1) Atrial fibrillation with rapid ventricular response: 2D Echo TSH:1.60 Tele Initially On Cardizem Drip Metoprolol .T 100 MG Q12 H Daily Initially Lovenox 120 mg sc q12 h daily. Currently on Eliquis 5 mg q12h daily Status: Acute (2) HTN (hypertension): Lisinopril 40 mg PO Daily Status: Acute (3) Diabetes mellitus: Lantus 10 u sc at bedtime LDSSI FSG HbA1C:10 Status: Acute (4) Obstructive sleep apnea: Status: Acute Additional A&P Information Code Status : Full code DVT PPX: On Eliquis Disposition :Home Attestations Medical Necessity Statement*: Patient needs to be in hospital for the management of A.fib with Rvr. Coding Level of Care Code Acute Heat Treat Puller for Chg Fwd Diagnoses Atrial fibrillation with rapid ventricular response I48.91 HTN (hypertension) I10 Diabetes mellitus E11.9 Obstructive sleep apnea G47.33
[2020-08-24] MEDS: apixaban 5 mg Tablet PO ×2 (10:21→21:25)
[2020-08-24 11:49] LABS: Glucose Point of Care 270 mg/dL (70-110)
--- NOTE | 2020-08-24 11:52 | PC.CHAP ---
Pastoral Care Encounter/Spiritual Assessment Type of Contact [xx] Declined die cast engineer visit [] Patient/Family/Request visit [] Outpatient visit [] Follow-up visit [] Physician referral [] Code/Alert [] Routine visit [] Staff referral [] Actively dying [] Patient sleeping [] Family support [] [] Out of room [] Palliative care [] [] Receiving care in room [] Pre-surgical visit [] Trauma [] Long length of stay [] ICU visit [] Other: Relational/Emotional Strength [] Patient feels connected with others/family/visitors/staff [] Distress [] Loneliness/isolation [] Abandonment Spirituality of Patient [] Person of Maral [] Attends Anglican of their [place] [] Believes in Prayer [] Reads Bible or Jewish materials [] There are Spiritual issues to be addressed Stage Electrician Interventions [] Prayer [] Active listening [] Non-anxious presence [] Spiritual/emotional support [] Crisis/trauma care [] Spiritual counseling [] Bereavement support [] Provided bereavement packet [] Provided Bible/devotional materials [] Provided toy/stuffed animal, coloring book to patient or family member [] Provided Communion [] Anointing/[place] [] Salvation [] Completed spiritual assessment [] Other: Impact on Illness or Injury [] Angry [] Fearful [] Anxious [] Often cries [] Exhaustion [] Unable to work [] Unable to attend mormon [] Unable to walk/stand [] Unable to read [] Unable to drive [] Unable to eat/drink [] Unable to sleep [] Unable to be with family [] Patient intubated [] Other: Summary Patient feeling miserable and did not feel like any visit today 08/24/20. He might feel like a visit on 08/25/20. Time spent with patient 1 minute
--- NOTE | 2020-08-24 13:27 | PC.NURSE ---
Pt lying in bed resting with eyes open talking to staff. Pt resp even and non-labored no distress noted. Pt had no c/o pain or discomfort at the present time. No needs voiced. Call light in reach. Will cont to monitor.
[2020-08-24 16:03] LABS: Glucose Point of Care 258 mg/dL (70-110)
--- NOTE | 2020-08-24 19:49 | PC.NURSE ---
Shift Assessment Patient resting in bed w/eyes closed. Patient verbalizes no complaints or needs at this time. Nurse will continue to monitor.
[2020-08-24 20:35] LABS: Glucose Point of Care 259 mg/dL (70-110)
[2020-08-24] MEDS: insulin glargine 100 units/1 mL 10 UNIT SUBCUT (21:39)
[2020-08-25] VITALS: BP 125/75; PULSE 84; RESP 16
[2020-08-25 03:31] VITALS: BP 108/67; PULSE 71; RESP 16; TEMP 36.6; O2SAT 96
[2020-08-25 05:18] LABS: Basophils # 0.1 10^3/uL (0.0-0.1); Basophils % 0.8 %; Eosinophils # 0.2 10^3/uL (0.0-0.8); Eosinophils % 3.2 %; Hematocrit 48.3 % (42.0-52.0); Hemoglobin 16.9 g/dL (11.7-16.6); Lymphocytes # 2.7 10^3/uL (0.8-4.8); Lymphocytes % 43.4 %; Mean Corpuscular Hemoglobin 32.2 pg (28.0-34.0); Mean Platelet Volume 12.2 fL (7.4-10.4); Monocytes # 0.5 10^3/uL (0.2-0.9); Monocytes % 8.1 %; Neutrophils # 2.75 10^3/uL (1.8-7.7); Neutrophils % 43.9 %; Nucleated Red Blood Cells % 0 %; Platelet Count 140 10^3/cmm (130-400); Red Blood Count 5.25 10^6/uL (4.1-5.3); Red Cell Distribution Width 11.2 % (12.1-15.1); White Blood Count 6.3 10^3/uL (4.0-10.0)
[2020-08-25 05:52] LABS: Anion Gap 11.6 (5-19); Blood Urea Nitrogen 16 mg/dL (6-20); Calcium 8.6 mg/dL (8.5-10.5); Carbon Dioxide 25 mmol/L (22-29); Chloride 101 mmol/L (98-107); Glomerular Filtration Rate 182.3 mL/min (90-130); Glucose 226 mg/dL (65-115); Osmolality Calculated 286 mOsm/kg (285-295); Potassium 3.6 mmol/L (3.5-5.1); Sodium 134 mmol/L (136-145)
[2020-08-25 06:00] VITALS: PULSE 67
[2020-08-25 06:48] LABS: Glucose Point of Care 240 mg/dL (70-110)
[2020-08-25 07:26] VITALS: BP 129/83; PULSE 67; RESP 10; TEMP 36.7; O2SAT 94
--- NOTE | 2020-08-25 08:30 | P.DS_ITS ---
Discharge Providers Date of Admission: 08/23/20 12:28 Date of Discharge: August 25, 2020 Attending Provider at Admission: Joaquín Schafer MD Attending Provider at Discharge: Joaquín Schafer MD Primary Care Provider: Loco Diaz DO Diagnoses at Discharge Discharge Diagnosis (1) Atrial fibrillation with rapid ventricular response: Status: Resolved (2) HTN (hypertension): Status: Chronic (3) Diabetes mellitus: Status: Chronic (4) Obstructive sleep apnea: Status: Chronic Reason for Visit Reason for Visit: SOB, CP, AFIB Hospital Course Hospital Course Michael Funk is a 40 year old male with PMH of HTN, DM, TBI,CHETNA, PTSD, MDD, a/fib s/p ablation in 2012 came in with c/o acute onset of chest pain, palpitation,dizziness, nausea, diaphoresis, started this morning while going to bank, his symptoms were same as he what he used to feel initially when he had a.fib prior to ablation. He was evaluated for the above mention complain in the ER. EKG: A fib with RVR with rate of 152. Xray chest : No nodules, masses or effusions are seen. The heart is normal. The pulmonary vascularity is not increased. No pneumonia or pneumothorax is seen. Pertinent Labs : Troponin: T : Normal , ABG : Normal , CMP : Normal Hb: 17.8 RBS: 435, AG : 16 HCO3: 22 . ECA Medications : Cardizem 20 mg I.V * 1 Dose, Metoprolol .T : 50 MG PO Once, M.T : 5 Mg I.V * 1 Dose. Started on Cardizem Drip. He was later admitted for the the management of A. fib with RVR. He was kept on Cardizem, metoprolol tartrate 100 mg every 12 hours daily was given (which was his home dose) patient later converted to NSR, and continued to remain in normal sinus rhythm throughout the hospital stay, given his chads vacs score of 2 he qualified for anticoagulation, he was started on Eliquis and later discharged on Xarelto. His HbA1c was 10: He is on Metformin 500 mg p.o. twice daily glipizide 2.5 mg p.o. daily was added. 2D echo was also done during the hospital: Mild diffuse hypokinesia of the left ventricle with ejection fraction of 45 to 50%Trace tricuspid valve regurgitation . Normal cardiac chamber sizes. There are no intracardiac masses. Compared to the study from 07/06/2018, the drop in the LV ejection fraction appears to be new. Since the patient remained chest pain-free during the hospital, but given the drop in the EF as compared to the prior study, he was advised to seek follow-up with cardiology as an outpatient for possible stress test. The drop in EF could also be attributed to A. fib with RVR. Though he has other risk factors for coronary artery disease, including and not limited to, hypertension, diabetes. Patient responded well to the above medical management and was discharged in stable condition. Physical Exam Const: COMMON NORMALS: patient oriented x3 HENMT: COMMON NORMALS: normocephalic and atraumatic HEAD & SCALP: normocephalic and atraumatic Neck/C-Spine: COMMON NORMALS: no JVD Chest: COMMONS NORMALS: normal inspection of the chest and normal palpation of entire chest wall CHEST: Yes Symmetrical chest wall rise Resp: COMMON NORMALS: normal respiratory effort, No retractions, No use of accessory muscles and clear to auscultation bilaterally EFFORT & INSPECTION: Yes symmetric chest movement AUSCULTATION: clear to auscultation bilaterally Cardio: COMMON NORMALS: no JVD, regular rate, regular rhythm, S1 normal heart sound present, S2 normal heart sound present and Peripheral pulses 2+ throughout RATE: regular rate RHYTHM: regular rhythm HEART SOUNDS: S1 normal heart sound present and S2 normal heart sound present PERIPHERAL PULSES: Peripheral pulses 2+ throughout GI: COMMON NORMALS: Normal to inspection, nondistended, normoactive bowel sounds present, Soft to palpation, non-tender, No hepatosplenomegaly present and no masses AUSCULTATION: Yes normoactive bowel sounds PALPATION: Yes Soft to palpation and Yes No hepatosplenomegaly present RECTAL EXAM: Yes deferred Extremity: COMMON NORMALS: no clubbing, cyanosis or edema and no pedal edema Neuro: COMMON NORMALS: patient oriented x3 Discharge Data Data Completed and Pending: Completed Studies During Hospitalization Category Date Time Status XR chest 1V joyce ble [id number] Stat Exams 08/23/20 09:16 Completed Pending at discharge Category Date Time Status Basic Metabolic P chip AM LABS Lab 08/26/20 04:00 Ordered Complete Blood Co unt w/Auto AM LABS Lab 08/26/20 04:00 Ordered CV echo complete* [id number] Routine Ultrasound 08/24/20 05:00 Taken Labs from last 24 hours 08/25/20 08/25/20 08/25/20 06:41 04:13 04:13 WBC 6.3 RBC 5.25 Hgb 16.9 H Hct 48.3 MCV 92.0 MCH 32.2 MCHC 35.0 RDW 11.2 L Plt Count 140 MPV 12.2 H Neut % (Auto) 43.9 Lymph % (Auto) 43.4 [place] % (Auto) 8.1 Eos % (Auto) 3.2 Baso % (Auto) 0.8 Neut # (Auto) 2.75 Lymph # (Auto) 2.7 [place] # (Auto) 0.5 Eos # (Auto) 0.2 Baso # (Auto) 0.1 Nucleated RBC % (a uto) 0 Nucleated RBCs # 0.0 Sodium 134 L Potassium 3.6 Chloride 101 Carbon Dioxide 25 Anion Gap 11.6 BUN 16 Creatinine 0.5 L GFR Calculation 182.3 H Glucose 226 H POC Glucose 240 H Calculated Osmolal ity 286 Calcium 8.6 08/24/20 08/24/20 08/24/20 20:24 15:58 11:46 WBC RBC Hgb Hct MCV MCH MCHC RDW Plt Count MPV Neut % (Auto) Lymph % (Auto) [place] % (Auto) Eos % (Auto) Baso % (Auto) Neut # (Auto) Lymph # (Auto) [place] # (Auto) Eos # (Auto) Baso # (Auto) Nucleated RBC % (a uto) Nucleated RBCs # Sodium Potassium Chloride Carbon Dioxide Anion Gap BUN Creatinine GFR Calculation Glucose POC Glucose 259 H 258 H 270 H Calculated Osmolal ity Calcium Vitals: Last Vital Signs Temp 98.0 F 08/25/20 07:26 Pulse 67 08/25/20 07:26 Resp 10 L 08/25/20 07:26 BP 129/83 08/25/20 07:26 Pulse Ox 94 08/25/20 07:26 Discharge Plan Discharge Patient Disposition: Home Condition: Stable Prescriptions: New glipizide 5 mg tablet 2.5 mg PO DAILY Qty: 30 RF: 0 Xarelto 20 mg tablet 20 mg PO DAILY Qty: 30 RF: 3 Continued lisinopril 40 mg tablet 40 mg PO DAILY@ RF: 0 metoprolol tartrate 100 mg tablet 100 mg PO BID@09,17 RF: 0 multivitamin Tablet 1 tab PO DAILY@ RF: 0 testosterone cypionate [Depo-Testosterone] 200 mg/mL oil 200 mg IM .Every other week Qty: 10 RF: 5 metformin 500 mg tablet extended release 24 hr 500 mg PO BID@ RF: 0 Changed aspirin 325 mg tablet 81 mg PO DAILY@ Qty: 0 RF: 0 Discharge Orders: Discharge Order (Routine); Ordered 08/25/20 Ordered By: Joaquín Schafer Referrals: Sita Isaac MD [Physician] - 1 week ([facility] will contact you to schedule an follow-up appointment with Dr. Isaac in 1 week. If you haven't heard from them by Thursday. Please call ) Discharge Diet: Diabetic Discharge Activity: Resume usual activity Patient Instructions: Glipizide (By mouth), Rivaroxaban (By mouth), Atrial Fibrillation (DC), Diabetes Mellitus Type 2 in Adults (DC), Hypertension (DC), Obstructive Sleep Apnea Discharge Attestations Time Spent in Discharge Care*: less than 30 min Specific Discharge Activities: educating patient, educating and/or supporting family/caregiver, discussing with briefcase sewer/social workers/dc planners, documenting/other paperwork and evaluating patient/reviewing data Status at Discharge: Cognitive status at discharge: cognitively intact , Behavioral status at discharge: cooperative , Functional status at discharge: independent ambulation Overall status at discharge: patient is back to baseline Quality Metrics Clinical Quality Measures During this hospital stay, did patient experience: None Coding Level of Care Code Acute Chg FW DC note Diagnoses Atrial fibrillation with rapid ventricular response I48.91 HTN (hypertension) I10 Diabetes mellitus E11.9 Obstructive sleep apnea G47.33
[2020-08-25] MEDS: metoprolol tartrate 50 mg Tablet 100 MG PO (08:50)
[2020-08-25] MEDS: multivitamin therapeutic Tablet 1 TAB PO (08:50)
[2020-08-25] MEDS: apixaban 5 mg Tablet PO (08:50)
[2020-08-25 09:26] VITALS: BP 129/83; PULSE 67; RESP 10; TEMP 36.7; O2SAT 94
--- NOTE | 2020-08-25 10:04 | PC.NURSE ---
patient discharged home at this time patient provided with discharge instructions and education on all new medications. patient ambulated out with spouse to private vehicle IV discontinued cath intact min bleeding noted patient alert oriented in stable condition with all belongings and discharge instructions in hand
== END 2020-08-25 09:58 | disposition home or self-care (01) | DRG 310 ==
LOC: ER 12:46 → CSU 13:54
PROVIDERS: Nurse Practitioner Family; Admitting Provider Internal Medicine; Emergency Provider Family Medicine; PCP Family Medicine; Visit Provider Internal Medicine
DX: I48.91 Unspecified atrial fibrillation (principal); I10 Essential (primary) hypertension; E11.9 Type 2 diabetes mellitus without complications; G47.33 Obstructive sleep apnea (adult) (pediatric); Z87.820 Personal history of traumatic brain injury; Z79.84 Long term (current) use of oral hypoglycemic drugs; F43.12 Post-traumatic stress disorder, chronic; G31.84 Mild cognitive impairment of uncertain or unknown etiology
CPT/HCPCS: 36415; 36416; 36600; 71045; 80048; 80051; 80053; 80061; 82009; 82330; 82805; 82962; 83036; 83735; 84403; 84443; 84484; 85025; 93005; 93306; 96372; 96374; 96375; 99285; J1650; J1815 ×2; J3490

== ENCOUNTER 2020-09-10 22:50 | Emergency (ER) | payer OTHER, SELFPAY ==
[2020-09-10 22:53] VITALS: BP 112/68; PULSE 81; RESP 18; TEMP 36.8; O2SAT 98; BMI 33.1
[2020-09-10 23:04] VITALS: PULSE 83
[2020-09-10 23:08] VITALS: BP 126/64; PULSE 84; RESP 16; O2SAT 96
--- NOTE | 2020-09-10 23:21 | XRR_ITS ---
PROCEDURE INFORMATION: Exam: XR Left Forearm Exam date and time: 09/10/2020 11:34 PM Age: 40 years old Clinical indication: Pain and injury or trauma; Other: Hit by baseball mid left forearm; Bleeding/hemorrhage; Arm, lower; Lower or forearm; Injury date: 09/10/20 TECHNIQUE: Imaging protocol: XR Left forearm. Views: 2 views. COMPARISON: No relevant prior studies available. FINDINGS: Bones/joints: Normal. Soft tissues: Normal. XR/XR forearm LT 2V [id number] IMPRESSION: No acute findings.
--- NOTE | 2020-09-10 23:22 | ED_ITS ---
HPI - Extremity Problem General: Chief complaint: Extremity Injury, Upper Stated complaint: LUE INJURY/HIT W/BASEBALL WHILE UMPIRING Time Seen by Provider: 09/10/20 22:54 Source: patient Mode of arrival: ambulatory Limitations: no limitations History of Present Illness: HPI Narrative: Hit in the left forearm with a baseball that was thrown by a pitcher.Complaining of pain to the mid posterior forearm Complaint: extremity pain and extremity swelling Onset (ago): hour(s) (6) Pain Consistency: constant Location: left and other (Forearm) Quality: aching Radiation: none Relieving factors: nothing Exacerbating factors: range of motion Associated symptoms: Reports no associated symptoms; Deny chest pain, fever(s) or rash Context: recent illness and other (Has a history of atrial fibrillation and is on a blood thinner) Review of Systems Const: Denies: fever(s) or chills Eyes: Denies: change in vision ENMT: Denies: throat pain Card: Denies: chest pain or palpitations Resp: Denies: dyspnea or wheezing GI: Denies: abdominal pain, nausea or vomiting : Denies: flank pain Musc: Reports: extremity pain and extremity swelling; Denies: neck pain, back pain, joint pain, joint swelling or joint redness Skin/Breast: Denies: rash or pruritus Neuro: Denies: headache(s) or numbness in extremities Psych: Denies: anxiety Zeke/Lymph: Denies: enlarged lymph nodes PFSH ED PFSH: Medical History Atrial fibrillation with rapid ventricular response CHF (congestive heart failure), NYHA class II Chronic post-traumatic stress disorder Diabetes mellitus Generalized anxiety disorder Hiatal hernia HTN (hypertension) Hyperlipidemia associated with type 2 diabetes mellitus Hypogonadism in male Major depressive disorder, recurrent, moderate Mild cognitive impairment, so stated Obstructive sleep apnea Personal history of traumatic brain injury Surgical History H/O arthroscopic knee surgery H/O esophagogastroduodenoscopy History of radiofrequency ablation (RFA) procedure for cardiac arrhythmia Hx of vasectomy Status post colonoscopy Family History Other CAD (coronary artery disease) Cancer Diabetes Stroke Denies family history of Anesthesia complication Bleeding disorder Social History Smoking and tobacco status: never smoked Alcohol intake: current Alcohol intake frequency: holidays/special occasions only Marital status: Number of children: 7 Number of grandchildren: 0 Current occupational status: unemployed and disabled History of recent travel: No Physical Exam Const: COMMON NORMALS: no acute distress and patient oriented x3 NUTRITIONAL APPEARANCE: overweight ORIENTATION/CONSCIOUSNESS: Yes awake, Yes oriented to person, Yes oriented to place and Yes oriented to time HENMT: COMMON NORMALS: normocephalic and atraumatic HEAD & SCALP: normocephalic and atraumatic FACE & SINUS: normal facial exam Eye: COMMON NORMALS: EOMs intact bilaterally Neck/C-Spine: COMMON NORMALS: full ROM, supple and no JVD GENERAL: Yes normal visual inspection Lymph: LYMPHATIC: no lymphadenopathy noted Chest: COMMONS NORMALS: normal inspection of the chest Resp: COMMON NORMALS: normal respiratory effort and clear to auscultation bilaterally EFFORT & INSPECTION: Yes able to speak in complete sentences AUSCULTATION: clear to auscultation bilaterally Cardio: COMMON NORMALS: no JVD, regular rate, regular rhythm and Peripheral pulses 2+ throughout RATE: regular rate RHYTHM: regular rhythm PERIPHERAL PULSES: Peripheral pulses 2+ throughout and radial pulses present GI: COMMON NORMALS: Normal to inspection, nondistended, normoactive bowel sounds present and Soft to palpation INSPECTION: Yes normal to inspection PALPATION: Yes Soft to palpation and No Tenderness to palpation present (GI) : COMMON NORMALS: Yes no CVA tenderness BLADDER/KIDNEY EXAM: Yes no CVA tenderness Back/Pelvis: COMMON NORMALS: no CVA tenderness Extremity: COMMON NORMALS: full ROM, capillary refill normal and no joint enlargement LEFT UPPER EXTREMITY: Yes lower arm (Mild swelling of the soft tissue to the mid dorsal left forearm with mild t) Neuro: COMMON NORMALS: patient oriented x3, CN's II-XII intact bilaterally, moves all extremities, no focal motor deficits and no sensory deficits noted SENSORIUM/ORIENTATION: Yes alert, Yes oriented to person, Yes oriented to place and Yes oriented to time SPEECH: speech normal MOTOR EXAM: 5/5 motor strength present throughout Psych: COMMON NORMALS: mental status grossly normal Skin: COMMON NORMALS: no rashes or lesions noted GENERAL SKIN EXAM: no rashes or lesions noted Course Vital Signs: Vital signs: Vital Signs Temperature 98.3 F 09/10/20 22:53 Pulse Rate 84 09/10/20 23:08 Respiratory Rate 16 09/10/20 23:08 Blood Pressure 126/64 09/10/20 23:08 Pulse Oximetry 96 09/10/20 23:08 MDM - Extremity (Nontraumatic) Imaging Data^: Other Xray: Attestation: I personally reviewed and interpreted this imaging study as follows: My impression: Left forearm x-ray appears normal. Discharge Plan Discharge Patient Disposition: Home Clinical Impression: Contusion of left forearm, initial encounter Condition: Stable Prescriptions: New hydrocodone-acetaminophen 5-325 mg tablet 1 tab PO Q6H PRN (Reason: pain) Qty: 10 RF: 0 No Action multivitamin Tablet 1 tab PO DAILY@09 RF: 0 testosterone cypionate [Depo-Testosterone] 200 mg/mL oil 200 mg IM .Every other week Qty: 10 RF: 5 lisinopril 40 mg tablet 40 mg PO DAILY@09 Qty: 30 RF: 3 metformin 500 mg tablet extended release 24 hr 500 mg PO BID Qty: 60 RF: 3 metoprolol tartrate 100 mg tablet 100 mg PO BID@09,17 Qty: 60 RF: 3 atorvastatin 40 mg tablet 40 mg PO DAILY Qty: 30 RF: 3 aspirin 325 mg tablet 325 mg PO DAILY@09 RF: 0 glipizide 5 mg tablet 2.5 mg PO DAILY Qty: 30 RF: 0 Xarelto 20 mg tablet 20 mg PO DAILY Qty: 30 RF: 3 Discharge Orders: Discharge ED (Routine); Ordered 09/11/20 Ordered By: Jose Rosenthal Referrals: Dylan Huerta MD [Primary Care Provider] - Discharge Diet: Usual diet Discharge Activity: Limit activity as instructed Patient Instructions: Opioid Safety Activity Restrictions/Additional Instructions: Rest left forearm for 2 to 3 days.Avoid Aleve, naproxen, ibuprofen while on Xarelto. Coding Level of Care Code ED Environmental Studies Department Chair for Shantelg Fwd Exam Comprehensive
[2020-09-11] MEDS: HYDROcodone-acetaminophen 5-325 mg Tablet 1 TAB PO (00:12)
--- NOTE | 2020-09-11 00:23 | W.ED.EXTPRO ---
HPI - Extremity Problem General: Chief complaint: Extremity Injury, Upper Stated complaint: LUE INJURY/HIT W/BASEBALL WHILE UMPIRING Time Seen by Provider: 09/10/20 22:54 History of Present Illness: HPI Narrative: hit in forearm with thrown baseball Complaint: extremity pain and extremity swelling Onset (ago): hour(s) (this afternoon) Location: upper extremity and other (Forearm) Quality: aching Relieving factors: nothing Exacerbating factors: range of motion (wnl) and palpation Associated symptoms: Reports myalgias; Deny chest pain, fever(s), rash or short of breath Review of Systems Const: Denies: fever(s) or chills Eyes: Denies: change in vision ENMT: Denies: throat pain Card: Denies: chest pain Resp: Denies: dyspnea or wheezing GI: Denies: abdominal pain, nausea or vomiting : Denies: flank pain Musc: Reports: extremity pain and extremity swelling; Denies: neck pain or back pain Skin/Breast: Denies: rash Neuro: Denies: headache(s) or numbness in extremities Psych: Denies: anxiety Zeke/Lymph: Denies: enlarged lymph nodes PFSH ED PFSH: Medical History Atrial fibrillation with rapid ventricular response CHF (congestive heart failure), NYHA class II Chronic post-traumatic stress disorder Diabetes mellitus Generalized anxiety disorder Hiatal hernia HTN (hypertension) Hyperlipidemia associated with type 2 diabetes mellitus Hypogonadism in male Major depressive disorder, recurrent, moderate Mild cognitive impairment, so stated Obstructive sleep apnea Personal history of traumatic brain injury Surgical History H/O arthroscopic knee surgery H/O esophagogastroduodenoscopy History of radiofrequency ablation (RFA) procedure for cardiac arrhythmia Hx of vasectomy Status post colonoscopy Family History Other CAD (coronary artery disease) Cancer Diabetes Stroke Denies family history of Anesthesia complication Bleeding disorder Social History Smoking and tobacco status: never smoked Alcohol intake: current Alcohol intake frequency: holidays/special occasions only Marital status: Number of children: 7 Number of grandchildren: 0 Current occupational status: unemployed and disabled History of recent travel: No Physical Exam Const: COMMON NORMALS: no acute distress, patient oriented x3, no limitations and well nourished GENERAL APPEARANCE: cooperative and comfortable HENMT: COMMON NORMALS: normocephalic and atraumatic HEAD & SCALP: normocephalic and atraumatic FACE & SINUS: normal facial exam Eye: COMMON NORMALS: EOMs intact bilaterally Neck/C-Spine: COMMON NORMALS: full ROM, no lymphadenopathy, supple and no meningeal signs GENERAL: Yes normal visual inspection Lymph: LYMPHATIC: no lymphadenopathy noted Chest: COMMONS NORMALS: normal inspection of the chest and normal palpation of entire chest wall CHEST: No Ecchymosis present and No rash Resp: COMMON NORMALS: normal respiratory effort, No retractions and clear to auscultation bilaterally EFFORT & INSPECTION: No respiratory distress AUSCULTATION: clear to auscultation bilaterally Cardio: COMMON NORMALS: regular rate, regular rhythm and Peripheral pulses 2+ throughout JUGULAR VENOUS DISTENTION: no JVD RATE: regular rate RHYTHM: regular rhythm PERIPHERAL PULSES: Peripheral pulses 2+ throughout GI: COMMON NORMALS: Normal to inspection, nondistended, normoactive bowel sounds present and non-tender : COMMON NORMALS: Yes no CVA tenderness BLADDER/KIDNEY EXAM: Yes no CVA tenderness Back/Pelvis: COMMON NORMALS: no CVA tenderness Extremity: COMMON NORMALS: full ROM and capillary refill normal LEFT UPPER EXTREMITY: Yes lower arm (pain and mild soft tissue swelling to mid L forearm) Neuro: COMMON NORMALS: patient oriented x3, CN's II-XII intact bilaterally, no focal motor deficits and no sensory deficits noted MENINGEAL SIGNS: Yes no meningeal signs Psych: COMMON NORMALS: mental status grossly normal and Normal thought process present THOUGHT PROCESS: Normal thought process present Skin: COMMON NORMALS: no rashes or lesions noted and no wounds GENERAL SKIN EXAM: no rashes or lesions noted Course Vital Signs: Vital signs: Vital Signs Temperature 98.3 F 09/10/20 22:53 Pulse Rate 91 09/11/20 00:40 Respiratory Rate 18 09/11/20 00:40 Blood Pressure 115/69 09/11/20 00:40 Pulse Oximetry 93 09/11/20 00:40 MDM - Extremity (Nontraumatic) Imaging Data^: Xray Ortho: Attestation: I personally reviewed and interpreted this imaging study as follows: My impression: L forearm wnl Discharge Plan Discharge Patient Disposition: Home Clinical Impression: Contusion of left forearm, initial encounter Condition: Stable Prescriptions: New hydrocodone-acetaminophen 5-325 mg tablet 1 tab PO Q6H PRN (Reason: pain) Qty: 10 RF: 0 No Action multivitamin Tablet 1 tab PO DAILY@09 RF: 0 testosterone cypionate [Depo-Testosterone] 200 mg/mL oil 200 mg IM .Every other week Qty: 10 RF: 5 lisinopril 40 mg tablet 40 mg PO DAILY@09 Qty: 30 RF: 3 metformin 500 mg tablet extended release 24 hr 500 mg PO BID Qty: 60 RF: 3 metoprolol tartrate 100 mg tablet 100 mg PO BID@09,17 Qty: 60 RF: 3 atorvastatin 40 mg tablet 40 mg PO DAILY Qty: 30 RF: 3 aspirin 325 mg tablet 325 mg PO DAILY@09 RF: 0 glipizide 5 mg tablet 2.5 mg PO DAILY Qty: 30 RF: 0 Xarelto 20 mg tablet 20 mg PO DAILY Qty: 30 RF: 3 hydrocodone-acetaminophen 5-325 mg tablet 1 tab PO Q8H PRN (Reason: pain) Qty: 7 RF: 0 Discharge Orders: Discharge ED (Routine); Ordered 09/11/20 Ordered By: Jose Rosenthal Referrals: Dylan Huerta MD [Primary Care Provider] - Discharge Diet: Usual diet Discharge Activity: Limit activity as instructed Patient Instructions: Opioid Safety Activity Restrictions/Additional Instructions: Rest left forearm for 2 to 3 days.Avoid Aleve, naproxen, ibuprofen while on Xarelto. Coding Level of Care Code ED Vending Machine Collector for Juarez Watson
[2020-09-11 00:40] VITALS: BP 115/69; PULSE 91; RESP 18; O2SAT 93
== END 2020-09-11 00:41 | disposition home or self-care (01) ==
PROVIDERS: Emergency Provider Family Medicine; PCP Family Medicine Adult Medicine
DX: S50.12XA Contusion of left forearm, initial encounter (principal); Z79.82 Long term (current) use of aspirin; Z79.84 Long term (current) use of oral hypoglycemic drugs; I48.91 Unspecified atrial fibrillation; I11.0 Hypertensive heart disease with heart failure; I50.9 Heart failure, unspecified; E11.9 Type 2 diabetes mellitus without complications; E78.5 Hyperlipidemia, unspecified; W21.03XA Struck by baseball, initial encounter
CPT/HCPCS: 73090; 99283

== ENCOUNTER 2020-09-15 03:39 | Emergency (ER) | payer OTHER, SELFPAY ==
[2020-09-15 03:45] VITALS: BP 126/74; PULSE 69; RESP 18; TEMP 36.5; O2SAT 97; BMI 33.1
--- NOTE | 2020-09-15 03:50 | ECG_ITS ---
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1980 Requested By: Markel Moyer Order Number: [id number] Leola MD: VERA SYKES Measurements Intervals [place] Rate: 72 P: 78 PA: 153 QRS: 62 QRSD: 117 T: 61 QT: 391 QTc: 430 Interpretive Statements SINUS RHYTHM MODERATE INTRAVENTRICULAR CONDUCTION DELAY [110+ ms QRS DURATION] Compared to ECG 08/23/2020 15:16:15 Intraventricular conduction delay now present Atrial fibrillation no longer present Electronically Signed On 09-15-2020 19:19:13 CDT by VERA SYKES [id number] f
--- NOTE | 2020-09-15 03:50 | XRR_ITS ---
PROCEDURE INFORMATION: Exam: XR Chest Exam date and time: 09/15/2020 3:54 AM Age: 40 years old Clinical indication: Patient HX: Chest pain with radiation to left arm and mandible. ; Additional info: Cp TECHNIQUE: Imaging protocol: XR of the chest. Views: 1 view. COMPARISON: CR XR chest 1V portable [id number] 08/23/2020 9:30 AM FINDINGS: Lungs: Unremarkable. No consolidation. Pleural spaces: Unremarkable. No pleural effusion. No pneumothorax. Heart/Mediastinum: Unremarkable. No cardiomegaly. Bones/joints: Unremarkable. XR/XR chest 1V portable [id number] IMPRESSION: No acute findings.
[2020-09-15] MEDS: nitroglycerin 0.4 mg sublingual Tablet SUBLINGUAL (03:56)
[2020-09-15] MEDS: ondansetron 2 mg/ML SDV 2 mL 4 MG IVP (03:56)
[2020-09-15 04:01] LABS: Basophils # 0.1 10^3/uL (0.0-0.1); Basophils % 0.7 %; Eosinophils # 0.2 10^3/uL (0.0-0.8); Eosinophils % 2.1 %; Hematocrit 47.9 % (42.0-52.0); Hemoglobin 16.8 g/dL (11.7-16.6); Lymphocytes # 3.3 10^3/uL (0.8-4.8); Mean Corpuscular HGB Conc 35.1 g/dL (30.0-36.0); Mean Corpuscular Hemoglobin 31.8 pg (28.0-34.0); Mean Corpuscular Volume 90.7 fL (80-94); Monocytes # 0.9 10^3/uL (0.2-0.9); Monocytes % 9.8 %; Neutrophils # 4.64 10^3/uL (1.8-7.7); Neutrophils % 50.9 %; Nucleated Red Blood Cells % 0 %; Platelet Count 168 10^3/cmm (130-400); Red Blood Count 5.28 10^6/uL (4.1-5.3); Red Cell Distribution Width 11.3 % (12.1-15.1); White Blood Count 9.1 10^3/uL (4.0-10.0)
[2020-09-15 04:23] LABS: Alanine Aminotransferase 60 U/L (0-41); Albumin Level 4.2 g/dL (3.5-5.2); Alkaline Phosphatase 70 IU/L (40-130); Chloride 101 mmol/L (98-107); Sodium 138 mmol/L (136-145)
[2020-09-15 04:24] LABS: Troponin(5th) Baseline 9 ng/L (0-15)
[2020-09-15 04:25] LABS: D Dimer <= 0.27 ug/mIFEU (0-0.59)
[2020-09-15 04:39] VITALS: BP 106/60; PULSE 70; RESP 16; O2SAT 95
[2020-09-15 04:51] LABS: Anion Gap 14.9 (5-19); Aspartate Amino Transferase 31 U/L (0-40); Blood Urea Nitrogen 17 mg/dL (6-20); Calcium 8.7 mg/dL (8.5-10.5); Carbon Dioxide 26 mmol/L (22-29); Globulin 2.6 g/dL (1.3-4.6); Glomerular Filtration Rate 147.8 mL/min (90-130); Glucose 243 mg/dL (65-115); NT Pro B Type Natriuretic Pept 17 pg/mL (0-125); Osmolality Calculated 294 mOsm/kg (285-295); Total Bilirubin 0.6 mg/dL (0.15-1.2); Total Protein 6.7 g/dL (6.6-8.7)
[2020-09-15 05:12] VITALS: BP 121/65; PULSE 69; RESP 13; O2SAT 95
--- NOTE | 2020-09-15 05:50 | ECG_ITS ---
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1980 Requested By: Markel Moyer Order Number: [id number] Leola MD: VERA SYKES Measurements Intervals [place] Rate: 69 P: 40 OR: 162 QRS: 58 QRSD: 114 T: 56 QT: 411 QTc: 441 Interpretive Statements SINUS RHYTHM POSSIBLE LATERAL MYOCARDIAL INFARCTION , OF INDETERMINATE AGE [30 ms Q WAVE IN I/aVL/V5/V6] Compared to ECG 09/15/2020 03:44:06 Myocardial infarct finding now present Intraventricular conduction delay no longer present Electronically Signed On 09-15-2020 19:19:43 CDT by VERA SYKES [id number] f
--- NOTE | 2020-09-15 05:51 | ED_ITS ---
HPI - Chest Pain General: Chief Complaint: Chest Pain Stated Complaint: CP/Arm and jaw numbness History of Present Illness: HPI narrative: 40-year-old male with history of hypertension, diabetes, and atrial fibrillation. He presents after waking up from sleep this morning with chest discomfort radiating into his left jaw and left arm. He is not had pain like this before he says. Does not like his usual episode of rapid atrial fib. He had not been sick any other way. It is slightly worse with deep breaths. It is slightly worse with arm movement. MD complaint: chest pain Pertinent past history: other Onset (ago): minute(s) Timing of current episode: constant Prior episodes: No Onset: during rest and awoke with symptoms Pain location: left chest Pain radiation: left arm and jaw/teeth Severity: severe Quality: tightness Relieving factors: nothing Exacerbating factors: nothing Associated symptoms: Reports dyspnea and nausea; Deny abdominal pain, diaphoresis, fever(s), palpitations or vomiting Treatment prior to arrival: aspirin (325) Review of Systems Const: Denies: fever(s) or diaphoresis Card: Reports: chest pain and edema; Denies: palpitations Resp: Reports: dyspnea GI: Reports: nausea; Denies: abdominal pain or vomiting Skin/Breast: Denies: rash Neuro: Denies: headache(s) or weakness in extremities PFSH ED PFSH: Medical History Atrial fibrillation with rapid ventricular response CHF (congestive heart failure), NYHA class II Chronic post-traumatic stress disorder Diabetes mellitus Generalized anxiety disorder Hiatal hernia HTN (hypertension) Hyperlipidemia associated with type 2 diabetes mellitus Hypogonadism in male Major depressive disorder, recurrent, moderate Mild cognitive impairment, so stated Obstructive sleep apnea Personal history of traumatic brain injury Surgical History H/O arthroscopic knee surgery H/O esophagogastroduodenoscopy History of radiofrequency ablation (RFA) procedure for cardiac arrhythmia Hx of vasectomy Status post colonoscopy Family History Other CAD (coronary artery disease) Cancer Diabetes Stroke Denies family history of Anesthesia complication Bleeding disorder Social History Smoking and tobacco status: never smoked Alcohol intake: current Alcohol intake frequency: holidays/special occasions only Marital status: Number of children: 7 Number of grandchildren: 0 Current occupational status: unemployed and disabled History of recent travel: No Physical Exam Const: GENERAL APPEARANCE: well developed, in distress and anxious ORIENTATION/CONSCIOUSNESS: Yes oriented to person, Yes oriented to place and Yes oriented to time HENMT: COMMON NORMALS: normocephalic, external ears normal and Normal external nose present HEAD & SCALP: normocephalic; no scalp tenderness FACE & SINUS: normal facial exam NOSE: Normal external nose present and No nasal discharge present EXTERNAL EAR: Yes external ears normal THROAT: posterior oropharynx normal; no peritonsillar mass Eye: COMMON NORMALS: Equal, round and reactive pupils present, EOMs intact bilaterally and conjunctivae normal EYELID: eyelids normal CONJUNCTIVA: Yes conjunctivae normal PUPIL: Yes Equal, round and reactive pupils present Neck/C-Spine: GENERAL: No tracheal deviation Chest: COMMONS NORMALS: normal inspection of the chest CHEST: Yes tenderness Resp: COMMON NORMALS: clear to auscultation bilaterally EFFORT & INSPECTION: No tachypneic, No respiratory distress, No retractions, No uses accessory muscles and No tracheal deviation AUSCULTATION: clear to auscultation bilaterally, no rhonchi, no wheezes and lung sounds not diminished Cardio: COMMON NORMALS: regular rate and regular rhythm RATE: regular rate RHYTHM: regular rhythm HEART SOUNDS: no murmurs PERIPHERAL PULSES: radial pulses present GI: INSPECTION: No abdominal distension AUSCULTATION: No Hyperactive bowel sounds present and No Hypoactive bowel sounds present PALPATION: No Guarding due to palpation present (GI) and No Rigid due to palpation PERCUSSION: no dullness to percussion and no tympanic to percussion Neuro: SENSORIUM/ORIENTATION: Yes oriented to person, Yes oriented to place and Yes oriented to time Psych: COMMON NORMALS: mental status grossly normal Skin: COMMON NORMALS: no rashes or lesions noted GENERAL SKIN EXAM: no rashes or lesions noted Course Vital Signs: Vital signs: Vital Signs Temperature 97.7 F 09/15/20 03:45 Pulse Rate 69 09/15/20 07:14 Respiratory Rate 12 09/15/20 07:14 Blood Pressure 128/68 09/15/20 07:14 Pulse Oximetry 96 09/15/20 07:14 MDM - Chest Pain MDM Narrative: Medical decision making narrative: 40-year-old male presents with chest discomfort that awoke him from sleep. It is somewhat pleuritic he is on Xarelto for atrial fibrillation. His D-dimer is nondetectable. His first troponin is negative. His EKG showed a sinus rhythm without significant ST change. As his symptoms started from sleep and the patient came in quickly, we will await a second troponin given his history. His chest x-ray is negative. He was given 1 nitroglycerin tablet with definite reduction in his blood pressure, such that we were unable to give him pain medication. His pain seems to be improving, and that now his arm hurts only when he moves it. He will be discharged to home following second troponin if it remains negative. Lab Data: Labs: Lab Results 09/15/20 09/15/20 09/15/20 Range/Units 03:49 03:49 03:49 WBC 9.1 (4.0-10.0) 10^3/ uL RBC 5.28 (4.1-5.3) 10^6/u L Hgb 16.8 H (11.7-16.6) g/dL Hct 47.9 (42.0-52.0) % MCV 90.7 (80-94) fL MCH 31.8 (28.0-34.0) pg MCHC 35.1 (30.0-36.0) g/dL RDW 11.3 L (12.1-15.1) % Plt Count 168 (130-400) 10^3/c mm MPV 12.0 H (7.4-10.4) fL Neut % (Auto) 50.9 % Lymph % (Auto) 36.0 % [place] % (Auto) 9.8 % Eos % (Auto) 2.1 % Baso % (Auto) 0.7 % Neut # (Auto) 4.64 (1.8-7.7) 10^3/u L Lymph # (Auto) 3.3 (0.8-4.8) 10^3/u L [place] # (Auto) 0.9 (0.2-0.9) 10^3/u L Eos # (Auto) 0.2 (0.0-0.8) 10^3/u L Baso # (Auto) 0.1 (0.0-0.1) 10^3/u L Nucleated RBC % (a uto) 0 % Nucleated RBCs # 0.0 /100WBC D-Dimer (0-0.59) ug/mIFE U Sodium 138 (136-145) mmol/L Potassium 4.0 (3.5-5.1) mmol/L Chloride 101 (98-107) mmol/L Carbon Dioxide 26 (22-29) mmol/L Anion Gap 14.9 (5-19) BUN 17 (6-20) mg/dL Creatinine 0.6 L (0.7-1.2) mg/dL GFR Calculation 147.8 H (90-130) mL/min Glucose 243 H (65-115) mg/dL Calculated Osmolal ity 294 (285-295) mOsm/k g Calcium 8.7 (8.5-10.5) mg/dL Total Bilirubin 0.6 (0.15-1.2) mg/dL AST 31 (0-40) U/L ALT 60 H (0-41) U/L Alkaline Phosphata se 70 (40-130) IU/L Troponin T Baselin e 9 (0-15) ng/L Troponin T 120 Min [place] (0-15) ng/L Delta Troponin T (0-10) ABS# NT-Pro-B Natriuret Pep 17 (0-125) pg/mL Total Protein 6.7 (6.6-8.7) g/dL Albumin 4.2 (3.5-5.2) g/dL Globulin 2.6 (1.3-4.6) g/dL 09/15/20 09/15/20 Range/Units 04:07 06:13 WBC (4.0-10.0) 10^3/ uL RBC (4.1-5.3) 10^6/u L Hgb (11.7-16.6) g/dL Hct (42.0-52.0) % MCV (80-94) fL MCH (28.0-34.0) pg MCHC (30.0-36.0) g/dL RDW (12.1-15.1) % Plt Count (130-400) 10^3/c mm MPV (7.4-10.4) fL Neut % (Auto) % Lymph % (Auto) % [place] % (Auto) % Eos % (Auto) % Baso % (Auto) % Neut # (Auto) (1.8-7.7) 10^3/u L Lymph # (Auto) (0.8-4.8) 10^3/u L [place] # (Auto) (0.2-0.9) 10^3/u L Eos # (Auto) (0.0-0.8) 10^3/u L Baso # (Auto) (0.0-0.1) 10^3/u L Nucleated RBC % (a uto) % Nucleated RBCs # /100WBC D-Dimer <= 0.27 (0-0.59) ug/mIFE U Sodium (136-145) mmol/L Potassium (3.5-5.1) mmol/L Chloride (98-107) mmol/L Carbon Dioxide (22-29) mmol/L Anion Gap (5-19) BUN (6-20) mg/dL Creatinine (0.7-1.2) mg/dL GFR Calculation (90-130) mL/min Glucose (65-115) mg/dL Calculated Osmolal ity (285-295) mOsm/k g Calcium (8.5-10.5) mg/dL Total Bilirubin (0.15-1.2) mg/dL AST (0-40) U/L ALT (0-41) U/L Alkaline Phosphata se (40-130) IU/L Troponin T Baselin e (0-15) ng/L Troponin T 120 Min [place] 8.70 (0-15) ng/L Delta Troponin T -0.30 L (0-10) ABS# NT-Pro-B Natriuret Pep (0-125) pg/mL Total Protein (6.6-8.7) g/dL Albumin (3.5-5.2) g/dL Globulin (1.3-4.6) g/dL Discharge Plan Discharge Patient Disposition: Home Clinical Impression: Atypical chest pain Condition: Stable Prescriptions: New hydrocodone-acetaminophen 5-325 mg tablet 1 tab PO Q8H PRN (Reason: pain) Qty: 7 RF: 0 No Action multivitamin Tablet 1 tab PO DAILY@09 RF: 0 testosterone cypionate [Depo-Testosterone] 200 mg/mL oil 200 mg IM .Every other week Qty: 10 RF: 5 lisinopril 40 mg tablet 40 mg PO DAILY@09 Qty: 30 RF: 3 metformin 500 mg tablet extended release 24 hr 500 mg PO BID Qty: 60 RF: 3 metoprolol tartrate 100 mg tablet 100 mg PO BID@09,17 Qty: 60 RF: 3 atorvastatin 40 mg tablet 40 mg PO DAILY Qty: 30 RF: 3 aspirin 325 mg tablet 325 mg PO DAILY@09 RF: 0 glipizide 5 mg tablet 2.5 mg PO DAILY Qty: 30 RF: 0 Xarelto 20 mg tablet 20 mg PO DAILY Qty: 30 RF: 3 hydrocodone-acetaminophen 5-325 mg tablet 1 tab PO Q6H PRN (Reason: pain) Qty: 10 RF: 0 Discharge Orders: Discharge ED (Routine); Ordered 09/15/20 Ordered By: Markel Amador Referrals: Dylan Huerta MD [Primary Care Provider] - 4-7 days Discharge Diet: Advance as tolerated Discharge Activity: Increase activity as tolerated Patient Instructions: Noncardiac Chest Pain (ED) Activity Restrictions/Additional Instructions: Return for return of or worsening chest pain despite treatment, shortness of breath, cough with sputum production, fever, syncope or passing out, any other concerning symptoms. Coding Level of Care Code ED Client Technical Professional for Shantelg Fwd Exam Comprehensive
[2020-09-15 06:39] VITALS: BP 129/69; PULSE 69; RESP 18; O2SAT 96
[2020-09-15 06:50] VITALS: BP 128/68; PULSE 69; RESP 12; O2SAT 96
[2020-09-15 07:14] VITALS: BP 128/68; PULSE 69; RESP 12; O2SAT 96
== END 2020-09-15 07:15 | disposition home or self-care (01) ==
PROVIDERS: Emergency Provider Emergency Medicine; PCP Family Medicine Adult Medicine
DX: R07.89 Other chest pain (principal); Z79.82 Long term (current) use of aspirin; Z79.84 Long term (current) use of oral hypoglycemic drugs; I48.91 Unspecified atrial fibrillation; I11.0 Hypertensive heart disease with heart failure; I50.9 Heart failure, unspecified; E11.9 Type 2 diabetes mellitus without complications; E78.5 Hyperlipidemia, unspecified
CPT/HCPCS: 71045; 80053; 83880; 84484; 85025; 85378; 93005; 96374; 96375; 99284; J2405

== ENCOUNTER 2022-02-19 11:30 | Outpatient (CLI) | payer OTHER, BC, SELFPAY ==
--- NOTE | 2022-02-19 12:03 | XR_ITS ---
WS: [id number] Exam: XR hip LT 2-3V wo/w pel* [id number] Date/Time of Exam: 02/19/2022 12:10 PM Reason For Exam: L HIP PAIN/L PELVIC PAIN/SACROILIAC PAIN No fracture or dislocation. Mild degenerative narrowing of the joint compartment. Normal soft tissues . XR/XR hip LT 2-3V wo/w pel* [id number] IMPRESSION: 1. Mild DJD. No fracture or other significant finding.
--- NOTE | 2022-02-19 12:03 | XR_ITS ---
WS: [id number] Exam: XR lumbar spine 2-3V* [id number] Date/Time of Exam: 02/19/2022 12:10 PM Reason For Exam: L HIP PAIN/L PELVIC PAIN/SACROILIAC PAIN No fracture or dislocation noted. Disc spaces are relatively well maintained. Facet DJD at L5-S1. Bon e hemangiomas involving all 5 lumbar vertebra representing an incidental finding. Posterior elements are intact. DJD of the bilateral SI joints. There may be partial fusion of the SI joints. XR/XR lumbar spine 2-3V* [id number] IMPRESSION: 1. No fracture or malalignment. 2. Facet DJD at L5-S1. 3. SI joint DJD. There may be partial fusion of the SI joints.
== END 2022-02-19 11:31 | disposition home or self-care (01) ==
PROVIDERS: PCP Family Medicine Adult Medicine; Visit Provider Family Medicine
DX: R10.2 Pelvic and perineal pain (principal); M54.32 Sciatica, left side; M47.817 Spondylosis without myelopathy or radiculopathy, lumbosacral region; M16.12 Unilateral primary osteoarthritis, left hip
CPT/HCPCS: 72100; 73502

== ENCOUNTER 2022-06-12 14:27 | Outpatient (CLI) | payer OTHER, SELFPAY ==
[2022-06-12 22:33] LABS: Testosterone Total - Urology 173 ng/mL (300-1000)
== END 2022-06-12 14:28 | disposition home or self-care (01) ==
LOC: LAB 14:32
PROVIDERS: PCP Family Medicine Adult Medicine; Visit Provider Urology
DX: R79.89 Other specified abnormal findings of blood chemistry (principal)
CPT/HCPCS: 36415; 84403

== ENCOUNTER → 2022-06-16 13:39 | Outpatient (BNVA) | payer OTHER, SELFPAY | PROVIDERS: PCP Family Medicine Adult Medicine; Visit Provider Urology | DX: R39.15 Urgency of urination (principal); E29.1 Testicular hypofunction; N39.9 Disorder of urinary system, unspecified | CPT/HCPCS: 81003 ==

== ENCOUNTER 2022-07-10 08:19 | Emergency (ER) | payer OTHER, SELFPAY ==
[2022-07-10] VITALS (13 sets, daily range): BP systolic 98–155; BP diastolic 23–105; PULSE 74–106; RESP 14–28; TEMP 36.6; O2SAT 90–98; BMI 33.7
--- NOTE | 2022-07-10 08:34 | XR_ITS ---
WS: [id number] Portable AP upright chest, 07/10/2022 Clinical Data: chest pain Comparison: Portable chest, 09/15/2020 Findings: No nodules, masses or effusions are seen. The heart is normal. The pulmonary vascularity is not increased. No pneumonia or pneumothorax is seen. There is a monitor lead on the chest wall XR/XR chest 1V portable [id number] Impression: Negative chest.
[2022-07-10 08:37] LABS: Glucose Point of Care 409 mg/dL (70-110)
--- NOTE | 2022-07-10 08:43 | PC.NURSE ---
versed pulled per verbal order from Dr. Hendrix. Versed handed to Dr. Hendrix
--- NOTE | 2022-07-10 08:48 | ECG_ITS ---
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 Measurements Intervals [place] Rate: 106 P: 40 NM: 149 QRS: 24 QRSD: 106 T: 67 QT: 343 QTc: 457 Interpretive Statements SINUS TACHYCARDIA ABNORMAL RHYTHM ECG Compared to ECG 09/15/2020 06:14:00 Sinus rhythm no longer present Myocardial infarct finding no longer present Electronically Signed On 07-10-2022 20:02:09 DIRECTOR OF REGULATORY AFFAIRS by Willie Harrison M.D. [id number]
--- NOTE | 2022-07-10 08:49 | W.ED.CHESTPA ---
HPI - Chest Pain General: Chief Complaint: Chest Pain Stated Complaint: AFIB, n/v Time Seen by Provider: 07/10/22 08:34 Source: patient Mode of arrival: ambulatory History of Present Illness: 42-year-old male presents emergency room with a known history of A-fib he presents tachypneic diaphoretic hypotensive. He has been dizzy nauseous and short of breath with some chest pain and began this morning he hit his head while at work yesterday. There is no loss consciousness. He did not take any of his morning medications he has a known history of atrial fibrillation he is on anticoagulants he is also on testosterone supplement. On arrival here he is nauseous when I came in the room actively vomiting diaphoretic and extremely anxious with a sense of impending doom complaining of chest discomfort. See notes below PFSH ED PFSH: Medical History Atrial fibrillation with rapid ventricular response CHF (congestive heart failure), NYHA class II Chronic post-traumatic stress disorder Diabetes mellitus Generalized anxiety disorder Hemorrhoids Hiatal hernia HTN (hypertension) Hyperlipidemia associated with type 2 diabetes mellitus Hypogonadism in male Major depressive disorder, recurrent, moderate Mild cognitive impairment, so stated Obesity (BMI 30.0-34.9) Obstructive sleep apnea Personal history of traumatic brain injury Surgical History H/O arthroscopic knee surgery H/O esophagogastroduodenoscopy History of radiofrequency ablation (RFA) procedure for cardiac arrhythmia Hx of vasectomy Status post colonoscopy Family History Mother Diabetes Hypertension Father , AT AGE 66 Cancer PANCREATIC Other CAD (coronary artery disease) Stroke Denies family history of Anesthesia complication Bleeding disorder Social History Smoking and tobacco status: never smoked Alcohol intake: current Alcohol intake frequency: holidays/special occasions only Marital status: Number of children: 7 Number of grandchildren: 0 Current occupational status: employed History of recent travel: No Course Vital Signs: Vital signs: Vital Signs Temperature 97.9 F 07/10/22 08:26 Pulse Rate 99 07/10/22 11:00 Respiratory Rate 14 07/10/22 11:00 Blood Pressure 126/88 07/10/22 11:00 Pulse Oximetry 96 07/10/22 11:00 Oxygen Delivery Me thod 07/10/22 09:10 Oxygen Flow Rate 2 07/10/22 09:10 MDM - Chest Pain Medical Decision Making 1 initial presentation evaluation of the patient he is diaphoretic on auscultation his heart rate is in the 2 30-2 50 range and irregularly irregular. First measured EKG came after he had had several episodes of vomiting and a vasovagal his heart rate down the first EKG read as supraventricular tachycardia although I believe based on bedside exam he was still in atrial fibrillation. We were prepared to cardiovert if needed however patient felt better after the vasovagal episodes and the rate dropped to 150s he was given 20 mg of IV push Cardizem after IV sites were established. He had significant improvement of symptoms his heart rate has decreased in response to that to the low 100s his blood pressure is improved to 108/58. Lab Data 07/10/22 08:45 07/10/22 08:45 Radiology Impressions Chest X-Ray 07/10/22 08:34 Impression: Negative chest. Laboratory Results WBC 18.6 10^3/uL (4.0-10.0) H 07/10/22 08:45 RBC 6.27 10^6/uL (4.1-5.3) H 07/10/22 08:45 Hgb 19.6 g/dL (11.7-16.6) H 07/10/22 08:45 Hct 56.2 % (42.0-52.0) H 07/10/22 08:45 MCV 89.6 fl (80-94) 07/10/22 08:45 MCH 31.3 pg (28.0-34.0) 07/10/22 08:45 MCHC 34.9 g/dL (30.0-36.0) 07/10/22 08:45 RDW 11.8 % (12.1-15.1) L 07/10/22 08:45 Plt Count 215 10^3/cmm (130-400) 07/10/22 08:45 MPV 12.1 fL (7.4-10.4) H 07/10/22 08:45 Neut % (Auto) 83.1 % 07/10/22 08:45 Lymph % (Auto) 10.0 % 07/10/22 08:45 [place] % (Auto) 5.7 % 07/10/22 08:45 Eos % (Auto) 0.5 % 07/10/22 08:45 Baso % (Auto) 0.3 % 07/10/22 08:45 Neut # (Auto) 15.47 10^3/uL (1.8-7.7) H 07/10/22 08:45 Lymph # (Auto) 1.9 10^3/uL (0.8-4.8) 07/10/22 08:45 [place] # (Auto) 1.1 10^3/uL (0.2-0.9) H 07/10/22 08:45 Eos # (Auto) 0.1 10^3/uL (0.0-0.8) 07/10/22 08:45 Baso # (Auto) 0.1 10^3/uL (0.0-0.1) 07/10/22 08:45 Nucleated RBC % (auto) 0 % 07/10/22 08:45 Nucleated RBCs # 0.0 /100WBC 07/10/22 08:45 Sodium 135 mmol/L (136-145) L 07/10/22 10:50 Potassium 4.5 mmol/L (3.5-5.1) 07/10/22 10:50 Chloride 101 mmol/L (98-107) 07/10/22 10:50 Carbon Dioxide 18 mmol/L (22-29) L 07/10/22 10:50 Anion Gap 20.5 (5-19) H 07/10/22 10:50 BUN 17 mg/dL (6-20) 07/10/22 10:50 Creatinine 0.6 mg/dL (0.7-1.2) L 07/10/22 10:50 GFR Calculation 146.4 mL/min (90-130) H 07/10/22 10:50 Glucose 342 mg/dL (65-115) H 07/10/22 10:50 POC Glucose 409 mg/dL (70-110) H 07/10/22 08:35 Calculated Osmolality 295 mOsm/kg (285-295) 07/10/22 10:50 Calcium 7.8 mg/dL (8.5-10.5) L 07/10/22 10:50 Total Bilirubin 1.3 mg/dL (0.15-1.2) H 07/10/22 08:45 AST 50 U/L (0-40) H 07/10/22 08:45 ALT 93 U/L (0-41) H 07/10/22 08:45 Alkaline Phosphatase 101 U/L (40-130) 07/10/22 08:45 Troponin T Baseline 7 ng/L (0-15) 07/10/22 08:45 Troponin T 120 Minute 7.06 ng/L (0-15) 07/10/22 10:50 Delta Troponin T 0.06 ABS# (0-10) 07/10/22 10:50 NT-Pro-B Natriuret Pep 36 pg/mL (0-125) 07/10/22 08:45 Total Protein 7.9 g/dL (6.6-8.7) 07/10/22 08:45 Albumin 4.5 g/dL (3.5-5.2) 07/10/22 08:45 Globulin 3.4 g/dL (1.3-4.6) 07/10/22 08:45 TSH 1.67 uIU/mL (0.27-4.20) 07/10/22 08:45 Discharge Plan Discharge Patient Disposition: Home Clinical Impression: Atrial fibrillation with RVR, Diabetes mellitus, Dehydration, Gastroenteritis Condition: Stable Prescriptions: New ondansetron HCl 4 mg tablet 4 mg PO Q6H PRN (Reason: nausea and vomiting) Qty: 20 0RF No Action multivitamin Tablet 1 tab PO DAILY@09 lisinopril 40 mg tablet 40 mg PO DAILY@09 Qty: 30 3RF omega-3 fatty acids [Fish Oil Concentrate] 1,000 mg capsule 1,000 mg PO DAILY fluoxetine 60 mg tablet 60 mg PO QAM Qty: 60 5RF glipizide 5 mg tablet 5 mg PO DAILY 90 Days Qty: 90 1RF metoprolol tartrate 100 mg tablet See Rx Instructions .ROUTE .COMPLEX Qty: 60 0RF Dose Instruction: TAKE 1 TABLET BY MOUTH TWICE DAILY (9AM AND 5PM) APPOINTMENT NEEDED FOR MORE REFILLS Rx Instructions: TAKE 1 TABLET BY MOUTH TWICE DAILY (9AM AND 5PM) APPOINTMENT NEEDED FOR MORE REFILLS aspirin 325 mg Tablet 325 mg PO DAILY metformin 500 mg tablet extended release 24 hr 500 mg PO BID Discharge Orders: Discharge ED (Routine); Ordered 07/10/22 Ordered By: Max Hendrix Referrals: Dylan Huerta MD [Primary Care Provider] - Discharge Diet: Clear Liquid Discharge Activity: Increase activity as tolerated Patient Instructions: Opioid Safety, Pain Management Activity Restrictions/Additional Instructions: You were seen today for rapid heart rate. You are in atrial fibrillation with rapid ventricular response he responded well to the medications we gave you and when we gave your regular oral home medications that controlled your heart rate quite nicely and converted you back into a normal sinus rhythm. Continue take your previously prescribed medications. Follow-up with your primary care doctor within the next 1 to 2 weeks. Coding Level of Care Code ED Director [employer] for Juarez Watson
[2022-07-10] MEDS: dilTIAZem 5 mg/mL SDV 5 mL 20 MG IVP (08:50)
[2022-07-10 08:52] LABS: Basophils # 0.1 10^3/uL (0.0-0.1); Basophils % 0.3 %; Eosinophils # 0.1 10^3/uL (0.0-0.8); Eosinophils % 0.5 %; Hematocrit 56.2 % (42.0-52.0); Hemoglobin 19.6 g/dL (11.7-16.6); Lymphocytes # 1.9 10^3/uL (0.8-4.8); Mean Corpuscular HGB Conc 34.9 g/dL (30.0-36.0); Mean Corpuscular Hemoglobin 31.3 pg (28.0-34.0); Mean Corpuscular Volume 89.6 fl (80-94); Mean Platelet Volume 12.1 fL (7.4-10.4); Monocytes # 1.1 10^3/uL (0.2-0.9); Monocytes % 5.7 %; Neutrophils # 15.47 10^3/uL (1.8-7.7); Neutrophils % 83.1 %; Nucleated Red Blood Cells % 0 %; Platelet Count 215 10^3/cmm (130-400); Red Blood Count 6.27 10^6/uL (4.1-5.3); Red Cell Distribution Width 11.8 % (12.1-15.1); White Blood Count 18.6 10^3/uL (4.0-10.0)
[2022-07-10] MEDS: aspirin 81 mg Chew Tablet 324 MG PO (08:56)
[2022-07-10] MEDS: dilTIAZem 100 MG in sodium chloride 0.9% (add-van) 100 ML IV (09:00)
[2022-07-10] MEDS: metoprolol tartrate 50 mg Tablet 100 MG PO (09:00)
--- NOTE | 2022-07-10 09:11 | PC.NURSE ---
PT PLACED ON CONTINUOUS NIBP, SPO2, AND CM
[2022-07-10] MEDS: sodium chloride 0.9% 1,000 ML 999 ML IV ×2 (09:12→10:25)
[2022-07-10 09:13] LABS: Troponin(5th) Baseline 7 ng/L (0-15)
[2022-07-10 09:21] LABS: Alanine Aminotransferase 93 U/L (0-41); Albumin Level 4.5 g/dL (3.5-5.2); Alkaline Phosphatase 101 U/L (40-130); Anion Gap 23.5 (5-19); Aspartate Amino Transferase 50 U/L (0-40); Blood Urea Nitrogen 20 mg/dL (6-20); Carbon Dioxide 19 mmol/L (22-29); Chloride 96 mmol/L (98-107); Creatinine Clr Calc Pharmacy 166.1467; Globulin 3.4 g/dL (1.3-4.6); Glucose 400 mg/dL (65-115); Osmolality Calculated 297 mOsm/kg (285-295); Potassium 4.5 mmol/L (3.5-5.1); Sodium 134 mmol/L (136-145); Thyroid Stimulating Hormone 1.67 uIU/mL (0.27-4.20); Total Bilirubin 1.3 mg/dL (0.15-1.2); Total Protein 7.9 g/dL (6.6-8.7)
[2022-07-10 09:31] LABS: NT Pro B Type Natriuretic Pept 36 pg/mL (0-125)
--- NOTE | 2022-07-10 09:46 | PC.NURSE ---
DR. RUEDA GAVE VERBAL ORDER TO TITRATE CARDIZEM TO 7.5ML/HR
--- NOTE | 2022-07-10 10:41 | ECG_ITS ---
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 Measurements Intervals [place] Rate: 104 P: 52 DC: 159 QRS: 52 QRSD: 102 T: 53 QT: 347 QTc: 458 Interpretive Statements SINUS TACHYCARDIA ABNORMAL RHYTHM ECG Compared to ECG 07/10/2022 08:48:42 No significant changes Electronically Signed On 07-10-2022 20:10:45 [employer] CONSULTANT by Willie Harrison M.D. [id number]
[2022-07-10 11:17] LABS: Troponin 5 2HR 7.06 ng/L (0-15)
[2022-07-10 11:30] LABS: Troponin 5 2HR Delta 0.06 ABS# (0-10)
[2022-07-10 12:13] LABS: Anion Gap 20.5 (5-19); Blood Urea Nitrogen 17 mg/dL (6-20); Calcium 7.8 mg/dL (8.5-10.5); Carbon Dioxide 18 mmol/L (22-29); Chloride 101 mmol/L (98-107); Glomerular Filtration Rate 146.4 mL/min (90-130); Glucose 342 mg/dL (65-115); Osmolality Calculated 295 mOsm/kg (285-295); Potassium 4.5 mmol/L (3.5-5.1); Sodium 135 mmol/L (136-145)
== END 2022-07-10 13:10 | disposition home or self-care (01) ==
PROVIDERS: Emergency Provider Family Medicine; PCP Family Medicine Adult Medicine
DX: I48.91 Unspecified atrial fibrillation (principal); R00.0 Tachycardia, unspecified; E86.0 Dehydration; K52.9 Noninfective gastroenteritis and colitis, unspecified; T50.916A Underdosing of multiple unspecified drugs, medicaments and biological substances, initial encounter; Z79.01 Long term (current) use of anticoagulants
CPT/HCPCS: 36416; 71045; 80048; 80053; 82962; 83880; 84443; 84484; 85025; 93005; 96365; 96366; 96375; 99285; J3490; J7030

== ENCOUNTER → 2022-10-21 08:15 | Outpatient (BNVA) | payer OTHER, SELFPAY | PROVIDERS: PCP Family Medicine Adult Medicine; Visit Provider Family Medicine Adult Medicine | DX: D75.1 Secondary polycythemia (principal); E11.69 Type 2 diabetes mellitus with other specified complication; E11.9 Type 2 diabetes mellitus without complications; F33.1 Major depressive disorder, recurrent, moderate; F41.1 Generalized anxiety disorder; F43.12 Post-traumatic stress disorder, chronic; J30.9 Allergic rhinitis, unspecified; E66.9 Obesity, unspecified; I48.0 Paroxysmal atrial fibrillation; I10 Essential (primary) hypertension | CPT/HCPCS: 80061; 83036 ==

== ENCOUNTER 2022-11-09 21:40 | Emergency (ER) | payer OTHER, SELFPAY ==
[2022-11-09 21:59] VITALS: BP 125/76; PULSE 93; RESP 16; TEMP 36.8; O2SAT 95; BMI 34.3
[2022-11-09 22:03] VITALS: BP 131/77; PULSE 91; RESP 16; O2SAT 97
--- NOTE | 2022-11-09 22:29 | XRR_ITS ---
PROCEDURE INFORMATION: Exam: XR Right Ankle Exam date and time: 11/09/2022 10:33 PM Age: 42 years old Clinical indication: Swelling or effusion of joint; Ankle and foot; Additional info: R ankle pain. Swelling TECHNIQUE: Imaging protocol: Radiologic exam of the right ankle. Views: 3 or more views. COMPARISON: No relevant prior studies available. FINDINGS: Bones/joints: Distal Achilles tendon degenerative calcification. Small calcified heel spur. Soft tissues: Normal. XR/XR ankle RT min 3V* [id number] IMPRESSION: 1. Distal Achilles tendon degenerative calcification. 2. Small calcified heel spur. 3. Negative for acute bony abnormality.
[2022-11-09 22:52] LABS: Basophils # 0.1 10^3/uL (0.0-0.1); Basophils % 0.7 %; Eosinophils # 0.2 10^3/uL (0.0-0.8); Eosinophils % 2.6 %; Hematocrit 46.7 % (42.0-52.0); Hemoglobin 15.8 g/dL (11.7-16.6); Lymphocytes # 3.1 10^3/uL (0.8-4.8); Lymphocytes % 34.6 %; Mean Corpuscular HGB Conc 33.8 g/dL (30.0-36.0); Mean Corpuscular Hemoglobin 31.2 pg (28.0-34.0); Mean Corpuscular Volume 92.3 fl (80-94); Mean Platelet Volume 11.8 fL (7.4-10.4); Monocytes # 0.9 10^3/uL (0.2-0.9); Monocytes % 10.4 %; Neutrophils # 4.55 10^3/uL (1.8-7.7); Neutrophils % 50.8 %; Nucleated Red Blood Cells % 0 %; Platelet Count 191 10^3/cmm (130-400); Red Blood Count 5.06 10^6/uL (4.1-5.3); Red Cell Distribution Width 11.8 % (12.1-15.1)
[2022-11-09 23:07] LABS: D Dimer 0.43 ug/mIFEU (0-0.59)
[2022-11-09 23:09] LABS: Alanine Aminotransferase 39 U/L (0-41); Albumin Level 3.6 g/dL (3.5-5.2); Alkaline Phosphatase 85 U/L (40-130); Anion Gap 13.2 (5-19); Aspartate Amino Transferase 21 U/L (0-40); Blood Urea Nitrogen 18 mg/dL (6-20); Calcium 8.6 mg/dL (8.5-10.5); Carbon Dioxide 27 mmol/L (22-29); Chloride 102 mmol/L (98-107); Globulin 3.1 g/dL (1.3-4.6); Glomerular Filtration Rate 122.5 mL/min (90-130); Glucose 245 mg/dL (65-115); Osmolality Calculated 296 mOsm/kg (285-295); Potassium 4.2 mmol/L (3.5-5.1); Sodium 138 mmol/L (136-145); Total Bilirubin 0.8 mg/dL (0.15-1.2); Total Protein 6.7 g/dL (6.6-8.7); Uric Acid 5.7 mg/dL (3.4-7.0)
[2022-11-09 23:10] LABS: Erythrocyte Sedimentation Rate 7 mm/hr (0-10)
[2022-11-09 23:59] VITALS: RESP 17; O2SAT 95
[2022-11-09] MEDS: oxyCODONE-APAP 5-325 mg Tablet 2 TAB PO (23:59)
[2022-11-10] MEDS: dexamethasone 4 mg Tablet 10 MG PO
[2022-11-10 00:16] VITALS: BP 134/79; PULSE 87; RESP 16; TEMP 36.6; O2SAT 98
--- NOTE | 2022-11-10 00:26 | ED_ITS ---
HPI - Extremity Problem General: Chief complaint: Extremity Problem,Nontraumatic Stated complaint: Rt Foot Swollen Time Seen by Provider: 11/09/22 22:10 Source: patient and family History of Present Illness: 42-year-old male with right ankle pain and swelling. This is nontraumatic. He has had a week or so of pain with increasing swelling. Pain with bearing weight, although the patient states that he can bear weight on the ankle. No increased pain to the calf. No other leg swelling. No fever. No injury or history of injection to that area. MD Complaint: joint swelling and joint pain Onset (ago): day(s) Pain Consistency: constant Location: right and other (Ankle) Quality: aching Radiation: none Relieving factors: immobilization Exacerbating factors: weight bearing Associated symptoms: Deny chest pain, fever(s), myalgias, rash or short of breath Review of Systems Const: Denies: fever(s) Card: Denies: chest pain Resp: Denies: dyspnea GI: Denies: abdominal pain, nausea or vomiting Musc: Denies: back pain Skin/Breast: Denies: rash PFSH ED PFSH: Medical History Allergic rhinitis due to allergen Atrial fibrillation with rapid ventricular response CHF (congestive heart failure), NYHA class II Chronic post-traumatic stress disorder Diabetes mellitus Dyslipidemia (high LDL; low HDL) Generalized anxiety disorder Hemorrhoids Hiatal hernia HTN (hypertension) Hyperlipidemia associated with type 2 diabetes mellitus Hypogonadism in male Major depressive disorder, recurrent, moderate Mild cognitive impairment, so stated Obesity (BMI 30.0-34.9) Obstructive sleep apnea Personal history of traumatic brain injury Polycythemia Testicular hypogonadism Surgical History H/O arthroscopic knee surgery H/O esophagogastroduodenoscopy History of radiofrequency ablation (RFA) procedure for cardiac arrhythmia Hx of vasectomy Status post colonoscopy Family History Mother Diabetes Hypertension Father , AT AGE 66 Cancer PANCREATIC Other CAD (coronary artery disease) Stroke Denies family history of Anesthesia complication Bleeding disorder Social History Smoking and tobacco status: never smoked Alcohol intake: current Alcohol intake frequency: holidays/special occasions only Substance/Drug Use: never Marital status: Number of children: 7 Number of grandchildren: 0 Current occupational status: employed Physical Exam Const: COMMON NORMALS: no acute distress GENERAL APPEARANCE: cooperative; not ill appearing and not frail appearing HENMT: COMMON NORMALS: normocephalic, atraumatic and Normal external nose present HEAD & SCALP: normocephalic and atraumatic FACE & SINUS: normal facial exam and face symmetric NOSE: Normal external nose present Eye: COMMON NORMALS: Equal, round and reactive pupils present and EOMs intact bilaterally PUPIL: Yes Equal, round and reactive pupils present Neck/C-Spine: GENERAL: Yes trachea midline Chest: CHEST: Yes Symmetrical chest wall rise Resp: COMMON NORMALS: normal respiratory effort, No retractions, No use of accessory muscles and clear to auscultation bilaterally AUSCULTATION: clear to auscultation bilaterally Cardio: COMMON NORMALS: regular rate and regular rhythm RATE: regular rate RHYTHM: regular rhythm GI: COMMON NORMALS: Normal to inspection, nondistended, normoactive bowel sounds present Extremity: COMMON NORMALS: no pedal edema NARRATIVE EXTREMITY EXAM: Examination of the right lower extremity reveals swelling over the right ankle joint. There is tenderness across the ankle and subtalar joints. No Achilles tenderness. Minimal warmth. No redness. No streaking. No excruciating pain with passive range of motion of the ankle or toes. No calf tenderness. Homans' sign is negative. Neuro: DAVID COMA SCALE: document GCS findings [place] coma scale eye opening: Spontaneous David coma scale verbal response: Orientated David coma scale motor response: Obey commands [place] coma scale total score: 15 SENSORY EXAM: Yes extremities (intact) Psych: COMMON NORMALS: speech normal SPEECH: Yes normal speech Skin: COMMON NORMALS: no rashes or lesions noted GENERAL SKIN EXAM: no rashes or lesions noted Course Vital Signs: Vital signs: Vital Signs Temperature 98 F 11/10/22 00:16 Pulse Rate 87 11/10/22 00:16 Respiratory Rate 16 11/10/22 00:16 Blood Pressure 134/79 11/10/22 00:16 Pulse Oximetry 98 11/10/22 00:16 Oxygen Delivery Me thod Room Air 11/09/22 22:03 MDM - Extremity (Nontraumatic) Medical Decision Making Tender swollen ankle with minimal warmth. Ankle x-ray does not reveal a definite ankle effusion. No evidence of bone destruction. White blood cell co unt is 9. CRP is 3, sed rate is 7. D-dimer is 0.43. He does not show signs of DVT otherwise. Uric acid level is 5.7. We will treat with a single dose of steroid, given the patient's diabetic status. Colchicine otherwise. Podiatry follow-up in case swelling persists, and further testing necessary. He knows to return for fever or worsening symptoms. Lab Data 11/09/22 22:45 11/09/22 22:45 Radiology Impressions Ankle X-Ray 11/09/22 22:29 IMPRESSION: 1. Distal Achilles tendon degenerative calcification. 2. Small calcified heel spur. 3. Negative for acute bony abnormality. Laboratory Results WBC 9.0 10^3/uL (4.0-10.0) 11/09/22 22:45 RBC 5.06 10^6/uL (4.1-5.3) 11/09/22 22:45 Hgb 15.8 g/dL (11.7-16.6) 11/09/22 22:45 Hct 46.7 % (42.0-52.0) 11/09/22 22:45 MCV 92.3 fl (80-94) 11/09/22 22:45 MCH 31.2 pg (28.0-34.0) 11/09/22 22:45 MCHC 33.8 g/dL (30.0-36.0) 11/09/22 22:45 RDW 11.8 % (12.1-15.1) L 11/09/22 22:45 Plt Count 191 10^3/cmm (130-400) 11/09/22 22:45 MPV 11.8 fL (7.4-10.4) H 11/09/22 22:45 Neut % (Auto) 50.8 % 11/09/22 22:45 Lymph % (Auto) 34.6 % 11/09/22 22:45 [place] % (Auto) 10.4 % 11/09/22 22:45 Eos % (Auto) 2.6 % 11/09/22 22:45 Baso % (Auto) 0.7 % 11/09/22 22:45 Neut # (Auto) 4.55 10^3/uL (1.8-7.7) 11/09/22 22:45 Lymph # (Auto) 3.1 10^3/uL (0.8-4.8) 11/09/22 22:45 [place] # (Auto) 0.9 10^3/uL (0.2-0.9) 11/09/22 22:45 Eos # (Auto) 0.2 10^3/uL (0.0-0.8) 11/09/22 22:45 Baso # (Auto) 0.1 10^3/uL (0.0-0.1) 11/09/22 22:45 Nucleated RBC % (auto) 0 % 11/09/22 22:45 Nucleated RBCs # 0.0 /100WBC 11/09/22 22:45 ESR 7 mm/hr (0-10) 11/09/22 22:45 D-Dimer 0.43 ug/mIFEU (0-0.59) 11/09/22 22:45 D-Dimer Cancelled 11/09/22 22:45 Sodium 138 mmol/L (136-145) 11/09/22 22:45 Potassium 4.2 mmol/L (3.5-5.1) 11/09/22 22:45 Chloride 102 mmol/L (98-107) 11/09/22 22:45 Carbon Dioxide 27 mmol/L (22-29) 11/09/22 22:45 Anion Gap 13.2 (5-19) 11/09/22 22:45 BUN 18 mg/dL (6-20) 11/09/22 22:45 Creatinine 0.7 mg/dL (0.7-1.2) 11/09/22 22:45 GFR Calculation 122.5 mL/min (90-130) 11/09/22 22:45 Glucose 245 mg/dL (65-115) H 11/09/22 22:45 Calculated Osmolality 296 mOsm/kg (285-295) H 11/09/22 22:45 Uric Acid 5.7 mg/dL (3.4-7.0) 11/09/22 22:45 Calcium 8.6 mg/dL (8.5-10.5) 11/09/22 22:45 Total Bilirubin 0.8 mg/dL (0.15-1.2) 11/09/22 22:45 AST 21 U/L (0-40) 11/09/22 22:45 ALT 39 U/L (0-41) 11/09/22 22:45 Alkaline Phosphatase 85 U/L (40-130) 11/09/22 22:45 C-Reactive Protein 3.0 mg/L (0.0-4.9) 11/09/22 22:45 Total Protein 6.7 g/dL (6.6-8.7) 11/09/22 22:45 Albumin 3.6 g/dL (3.5-5.2) 11/09/22 22:45 Globulin 3.1 g/dL (1.3-4.6) 11/09/22 22:45 Discharge Plan Discharge Patient Disposition: Home Clinical Impression: Acute ankle pain, Monoarthritis of ankle Condition: Stable Prescriptions: New colchicine 0.6 mg capsule 0.6 mg PO BID Qty: 30 0RF No Action multivitamin Tablet 1 tab PO DAILY@09 omega-3 fatty acids [Fish Oil Concentrate] 1,000 mg capsule 1,000 mg PO DAILY lisinopril 40 mg tablet 40 mg PO DAILY@09 Qty: 30 5RF metformin 500 mg tablet extended release 24 hr 500 mg PO BID Qty: 60 5RF metoprolol tartrate 100 mg tablet 100 mg PO BID Qty: 60 5RF testosterone cypionate [Depo-Testosterone] 200 mg/mL oil 200 mg SUBCUT .q 14 days 140 Days Qty: 10 3RF escitalopram oxalate 20 mg tablet 30 mg PO DAILY Qty: 45 5RF buspirone 10 mg tablet 10 mg PO BID Qty: 60 5RF fluticasone propionate [Flonase Allergy Relief] 50 mcg/actuation spray,suspension 1 spray intranasal BID PRN (Reason: nasal congestion/drainage) Qty: 16 5RF Rx Instructions: administer into each nostril glipizide 10 mg tablet 10 mg PO DAILY Qty: 90 1RF atorvastatin 40 mg tablet 40 mg PO DAILY Qty: 90 1RF aspirin 325 mg Tablet 325 mg PO DAILY Discharge Orders: Discharge ED (Routine); Ordered 11/09/22 Ordered By: Markel Amador Referrals: Dylan Huerta MD [Primary Care Provider] - 1-3 days Putnam,Julio César, DPM [Physician] - 4-7 days Patient Instructions: Opioid Safety, Pain Management Activity Restrictions/Additional Instructions: Take the colchicine 4 times daily x2 days, then 3 times daily x2 days, then twice daily. Ice and elevate the right lower extremity. Return for fever greater than 100, increasing pain despite treatment, increasing swelling despite treatment, any chest discomfort or shortness of breath, any other concerning symptoms. Coding Level of Care Code ED [employer] Operator for Juarez Watson
== END 2022-11-10 00:17 | disposition home or self-care (01) ==
PROVIDERS: Emergency Provider Emergency Medicine; PCP Family Medicine Adult Medicine
DX: M25.571 Pain in right ankle and joints of right foot (principal); M13.171 Monoarthritis, not elsewhere classified, right ankle and foot
CPT/HCPCS: 36415; 73610; 80053; 84550; 85025; 85378; 85651; 86140; 99284; J8540

== ENCOUNTER → 2023-06-19 09:58 | Outpatient (BNVA) | payer OTHER, SELFPAY | PROVIDERS: PCP Family Medicine Adult Medicine; Visit Provider Family Medicine Adult Medicine | DX: I10 Essential (primary) hypertension (principal); E78.5 Hyperlipidemia, unspecified; E11.9 Type 2 diabetes mellitus without complications | CPT/HCPCS: 80053; 80061; 83036 ==

== ENCOUNTER → 2023-07-07 09:15 | Outpatient (BNVA) | payer OTHER, SELFPAY | PROVIDERS: PCP Family Medicine Adult Medicine; Visit Provider Family Medicine Adult Medicine | DX: M25.511 Pain in right shoulder (principal) | CPT/HCPCS: 73030 ==